=== PATIENT | female | born 1950 | race African-American/Black ===

== ENCOUNTER 2016-11-10 13:21 | Emergency (ER) | payer SELFPAY ==
[~2016-11-10] VITALS: Ht 165.1 cm; Wt 80.0 kg
[~2016-11-10 13:21] MED LIST: GLUCTAB PO; LEVEMIR SQ; LISI-360 PO; LOVA20TA PO; MELO7.5T PO; NOVOLOGP2 SC; SM A81CH CHEW
[2016-11-10 13:22] VITALS: BP 144/80; PULSE 73; RESP 12; TEMP 97.5; O2SAT 97
== END 2016-11-10 14:48 | disposition left against medical advice (07) ==
LOC: NETRI 13:21
DX: Z53.21 Procedure and treatment not carried out due to patient leaving prior to being seen by health care provider (principal)
CPT/HCPCS: 99281

== ENCOUNTER 2016-12-01 10:23 | Inpatient (IN) | payer OTHER, MEDICARE ==
[~2016-12-01] VITALS: Ht 160 cm; Wt 99.5 kg
--- NOTE | 2017-01-09 08:34 | MH ---
cc: Andrew PADILLA M.D. DATE OF ADMISSION: 01/19/2017 ADMITTING DIAGNOSIS: Osteoarthritic degeneration right knee now being admitted for right total knee arthroplasty. HISTORY OF PRESENT ILLNESS: This pleasant 66-year-old diabetic female with a heart condition is being admitted today for a right total knee arthroplasty due to severe osteoarthritic degeneration of the right knee. OTHER PAST HISTORY: 1. She does have some heart problems for which she has been medically cleared. 2. Diabetes. 3. Back pain. CURRENT MEDICATIONS: 1. Metoprolol. 2. Zetia. 3. Metformin. 4. She is off her Plavix. 5. She takes Lipitor. PAST SURGICAL HISTORY: Her previous surgeries include: 1. Hysterectomy. 2. Tonsillectomy. 3. Removal of the stent in her heart. REVIEW OF SYSTEMS: Noncontributory. FAMILY HISTORY: Noncontributory. SOCIAL HISTORY: She does not smoke or drink. ALLERGIES: SHE HAS NO KNOWN ALLERGIES. PHYSICAL EXAMINATION: GENERAL: We find a 66-year-old female well-developed, well-nourished and alert and oriented times three complaining of pain in her right knee. VITAL SIGNS: Blood pressure 132/84, pulse 72 and regular, respirations 18, temperature 98.1. Pulse oximetry 97% on room air. HEAD, EYES, EARS, NOSE, THROAT: Pupils equal, round and reactive to light and accommodation. Extraocular muscles intact. Ears, nose and mouth clear. NECK: The neck is supple. LUNGS: The lungs are clear. HEART: Regular rate. ABDOMEN: Abdomen soft. Positive bowel sounds. Nontender. EXTREMITIES: Extremities reveal the right knee to be tender with crepitus on range of motion with a general valgus deformity noted. Neurovascularly intact to her toes. IMPRESSION: Severe painful osteoarthritic degeneration right knee with genu valgus deformity for which the patient is now scheduled for a right total knee arthroplasty. She understands the procedure well and the risks involved and understands to use Hibiclens scrub and Bactroban preoperatively and was given a prescription for postoperative pain anticoagulation control in the office as she plans on going home with home health care after her stay in the hospital. J. MD MARCELINO Figueroa/GUICHO /3:33 PM /8:28 AM
[2017-01-16] MEDS ORDERED: LEVEMIR SQ (14:26)
[2017-01-16] MEDS ORDERED: LISI10TA3 PO (14:26)
[2017-01-16] MEDS ORDERED: METO25TA3 PO (14:26)
[2017-01-16] MEDS ORDERED: GABA300C5 PO (14:26)
[2017-01-16] MEDS ORDERED: ZETI10TA5 PO (14:26)
[2017-01-16] MEDS ORDERED: ATOR1TAB18 PO (14:26)
[2017-01-16] MEDS ORDERED: NOVOLOGP2 SQ (14:26)
[2017-01-16] MEDS ORDERED: ASPI1TAB69 PO (14:26)
[2017-01-16] MEDS ORDERED: METF500T PO (14:26)
[2017-01-19] MEDS ORDERED: PLAV75TA29 PO (06:31)
[2017-01-19 06:32] VITALS: BP 177/81; PULSE 57; RESP 20; TEMP 98.2; O2SAT 97
[2017-01-19] MEDS ORDERED: SODIUM CHLOR 0.9% 250 ML INJ 250 ML ONE (06:37)
[2017-01-19] MEDS ORDERED: VANCOMYCIN HCL 1000 MG VIAL ONE (06:37)
[2017-01-19] MEDS ORDERED: LACTATED RINGER'S 1000 ML INJ 1,000 ML ONE (06:37)
[2017-01-19] MEDS ORDERED: SODIUM CHLORID 0.9% 500 ML IV PRN (06:45)
[2017-01-19] MEDS ORDERED: LACTATED RINGER'S 1000 ML IV PRN (06:45)
[2017-01-19] MEDS ORDERED: INSULIN HUMAN REGULAR 1,000 UNITS/10 ML VIAL SQ PRN (06:45)
[2017-01-19] MEDS ORDERED: POVIDONE IODINE 5% (ANTISEPSIS KIT) 4 APPLICATIONS EACH NARE PRN (06:45)
[2017-01-19] MEDS ORDERED: CHLORHEXIDINE GLUCONATE 2 % 1 PACK (2 CLOTHS) TOPICAL PRN (06:45)
[2017-01-19] MEDS ORDERED: METOPROLOL TARTRATE 25 MG TAB PO PRN (06:45)
[2017-01-19] MEDS ORDERED: VANCOMYCIN 1000 MG/NS 250 ML (for <70 kg) IV SCH ×2 (07:00)
[2017-01-19] MEDS ORDERED: ceFAZolin 2 GM PREMIX 50 ML IV SCH (07:00)
[2017-01-19] MEDS ORDERED: TRANEXAMIC ACID INJ 857 MG in SODIUM CHLORIDE 0.9% INJ 100 ML IV SCH ×2 (07:00→09:00)
[2017-01-19] MEDS ORDERED: BUPIVACAINE LIPOSO PF 1.3% INJ 20 ML, BUPIVACAINE PF 0.25% INJ 20 ML in SODIUM CHLORIDE... P-ARTICULR SCH (07:15)
[2017-01-19] MEDS ORDERED: ACETAMINOPHEN 1000 MG/100 ML VIAL IV ONE (07:23)
--- NOTE | 2017-01-19 08:20 | HHI.FF ---
Face to Face Verification Diagnosis: (1) Status post total right knee replacement Physical Therapy Gait training Knee: Total knee, Protocol: Right, Full weight bearing Canvas Knee Splint: When in bed & 2 pillows btw thighs Nursing RN: 3 days/week x 2 weeks Nursing: Lauren teaching, Dressing changes Dressing Changes: Daily dressing change, 4x4s, Gauze, Paper tape I have seen patient Shweta Fernandez on 01/19/17. My clinical findings support the need for the requested home health care services because: Limited ability to care for self High risk of falls I certify that my clinical findings support that this patient is homebound because: Unsteady gait/balance Andrew Ashby MD Jan 19, 2017 08:20
[2017-01-19] MEDS ORDERED: WALKER WHEELS/F1 MIS (08:24)
[2017-01-19] MEDS ORDERED: CPMMACHINE (08:25)
[2017-01-19] MEDS ORDERED: MISC-163 (08:25)
[2017-01-19] MEDS ORDERED: SODIUM CHLORIDE 0.9% FLUSH 5 ML FLUSH IVF PRN (08:30)
[2017-01-19] MEDS ORDERED: TRANEXAMIC ACID INJ 0 MG in SODIUM CHLORIDE 0.9% INJ 100 ML IV SCH (08:30)
[2017-01-19] MEDS ORDERED: ACETAMINOPHEN 325 MG TAB PO PRN (08:30)
[2017-01-19] MEDS ORDERED: MORPHINE SULFATE 30 MG/30 ML PCA IV SCH (08:30)
[2017-01-19] MEDS ORDERED: ONDANSETRON HCL 4 MG/2 ML VIAL IVP PRN (08:30)
[2017-01-19] MEDS ORDERED: NALOXONE HCL 0.4 MG/ML AMP IV PRN ×2 (08:30)
[2017-01-19] MEDS ORDERED: diphenhydrAMINE HCL 50 MG/ML VIAL IV PRN (08:30)
[2017-01-19] MEDS ORDERED: TEMAZEPAM 15 MG CAP PO PRN (08:30)
[2017-01-19] MEDS ORDERED: ceFAZolin INJ 1,000 MG VIAL XX ONE (08:57)
[2017-01-19] MEDS: metFORMIN HCL 500 MG TAB PO SCH ×2 (09:00→18:41)
[2017-01-19] MEDS: SODIUM CHLORIDE 0.9% FLUSH 5 ML FLUSH IVF SCH ×2 (09:00→21:00)
[2017-01-19] MEDS ORDERED: BUPIVACAINE HCL PF 0.5% 30 ML VIAL NERV BLOCK ONE (09:39)
[2017-01-19] MEDS: LACTATED RINGER'S 1000 ML INJ 1,000 ML IV SCH ×2 (11:50→21:03)
[2017-01-19] MEDS ORDERED: Post-op Orders (for Pharmacy) MISC XX ONE (11:52)
[2017-01-19] MEDS ORDERED: NEOSTIGMINE 3 MG/3 ML SYR IV ONE (12:00)
[2017-01-19] MEDS ORDERED: ONDANSETRON HCL 4 MG/2 ML VIAL IV PUSH ONE (12:00)
[2017-01-19] MEDS ORDERED: PROPOFOL 200 MG/20 ML AMP IV ONE (12:00)
[2017-01-19] MEDS ORDERED: ePHEDrine/NS 25 MG/5 ML SYR IV ONE (12:00)
[2017-01-19] MEDS ORDERED: LACTATED RINGER'S 1000 ML INJ 1,000 ML IV ONE (12:00)
--- NOTE | 2017-01-19 13:14 | RADRPT ---
EXAM DATE/TIME: 01/19/2017 12:19 [place] COMPARISON: No previous studies available for comparison. INDICATIONS : Post op right knee. MEDICAL HISTORY : None. SURGICAL HISTORY : None. ENCOUNTER: Initial ACUITY: 1 day PAIN SCORE: Non-responsive. LOCATION: Right knee FINDINGS: AP and lateral views of the right knee were obtained and demonstrate that the patient is status post arthroplasty. The femoral and tibial components are intact and in normal alignment. There are postope rative changes involving the patella. There is anterior soft tissue swelling and gas. CONCLUSION: Expected postoperative changes status post arthroplasty. Jatin Priest MD on January 19, 2017 at 12:55 Board Certified Radiologist. This report was verified electronically.
[2017-01-19] MEDS ORDERED: DO NOT ADM ANY ANTICOAGULANT DRUGS PRN (13:30)
--- NOTE | 2017-01-19 13:59 | PD.CONS ---
HPI Service [facility] Consult Requested By Dr. Ashby Reason for Consult DM2, HTN, Hyperlipidemia, CAD - status post Right Total Knee Primary Care Physician Tim Moya MD Diagnoses: (1) History of heart artery stent (2) Dyslipidemia (3) Hypertension (4) Diabetes History of Present Illness Mrs. Fernandez is a 66 year old female. A consult for medical management has been placed for her and I am seeing her post op after she has had a right total knee arthroplasty. She is doing well post op and is having no nausea or severe pain. Baseline conditions are CAD, Hyperlipidemia, DM2, and HTN. She has no acute complaints when seen. Review of Systems Constitutional: DENIES: Diaphoretic episodes, Fever Eyes: DENIES: Blurred vision, Diplopia Respiratory: DENIES: Shortness of breath Cardiovascular: DENIES: Chest pain Gastrointestinal: DENIES: Abdominal pain Musculoskeletal: COMPLAINS OF: Joint pain Hematologic/lymphatic: DENIES: Bruising Immunologic/allergic: DENIES: Eczema Psychiatric: DENIES: Anxiety Past Family Social History Allergies: Coded Allergies: No Known Allergies (Verified , 01/19/17) Past Medical History CAD HTN Hyperlipidemia DM2 OA Past Surgical History Right Total Knee Arthroplasty Reported Medications Reported Meds & Active Scripts Active Reported Plavix (Clopidogrel Bisulfate) 75 Mg Tab 75 Mg PO DAILY Metoprolol Tartrate 25 Mg Tab 25 Mg PO BID Atorvastatin (Atorvastatin Calcium) 80 Mg Tab 80 Mg PO HS Zetia (Ezetimibe) 10 Mg Tab 10 Mg PO DAILY Gabapentin 300 Mg Cap 300 Mg PO BID Metformin (Metformin HCl) 500 Mg Tab 500 Mg PO BIDPC With meals Lisinopril 10 Mg Tab 10 Mg PO DAILY Levemir Inj (Insulin Detemir) 1,000 unit/ 10 ML Vial 25 Units SQ HS Do not mix with any other Insulin. Novolog Inj (Insulin Aspart) 1,000 Unit/10 Ml Vial 1-9 Units SQ TID Max dose at bedtime:( )units; sugars less than 70,(0)units; sugars 150-199,(1) unit; sugars 200-249,(3) units; sugars 250-299,(5) units; sugars 300-349,(7) units; sugars greater than 349,(9) units Aspirin 81 Mg Tabdr 81 Mg PO DAILY Active Ordered Medications Administered Medications Medications (Trade) Dose Ordered Sig/Taz Route PRN Reason Start Time Stop Time Status Last Admin Dose Admin Tranexamic Acid 857 mg/Sodium Chloride 108.57 ml @ 200 mls/ hr ONCE IV 01/19/17 07:00 01/20/17 06:59 01/19/17 08:25 Tranexamic Acid 857 mg/Sodium Chloride 108.57 ml @ 200 mls/ hr ONCE IV 01/19/17 09:00 01/20/17 08:59 01/19/17 11:55 Lactated Ringer's (Lr 1000 ml Inj) 1,000 ml @ 80 mls/hr [id number] IV 01/19/17 08:16 01/19/17 11:50 Morphine Sulfate (Morphine 1 Mg/ ml EXEC[employer]IVE CREATIVE DIRECTOR) 30 mg UNSCH IV 01/19/17 08:30 01/19/17 12:31 Family History None reported. sedation post op prevents a clear history Social History None reported. sedation post op prevents a clear history Physical Exam Vital Signs Vital Signs Date Time Temp Pulse Resp B/P Pulse Ox O2 Delivery O2 Flow Rate FiO2 01/19/17 13:30 65 16 152/77 95 Nasal Cannula 2 01/19/17 13:15 72 16 158/80 96 Nasal Cannula 2 01/19/17 13:00 72 16 150/73 96 Nasal Cannula 2 01/19/17 12:45 72 16 151/77 96 Nasal Cannula 2 01/19/17 12:31 14 01/19/17 12:30 74 16 148/83 97 Nasal Cannula 2 01/19/17 12:15 74 16 135/69 97 Nasal Cannula 2 01/19/17 12:00 73 16 146/76 97 Nasal Cannula 2 01/19/17 11:48 98.4 76 16 138/62 98 Nasal Cannula 4 01/19/17 06:32 98.2 57 20 177/81 97 Physical Exam GENERAL: NAD, A&Ox3 SKIN: Warm and dry. HEAD: Normocephalic. EYES: No scleral icterus. No injection or drainage. NECK: Supple, trachea midline. No JVD or lymphadenopathy. CARDIOVASCULAR: Regular rate and rhythm without murmurs, gallops, or rubs. RESPIRATORY: Breath sounds equal bilaterally. No accessory muscle use. GASTROINTESTINAL: Abdomen soft, non-tender, nondistended. MUSCULOSKELETAL: No cyanosis, or edema. Right Knee is in a mobilizer and bandaged. BACK: Nontender without obvious deformity. No CVA tenderness. Laboratory Laboratory Tests Test 01/19/17 06:30 Blood Type O POSITIVE Antibody Screen NEGATIVE Blood Bank Comment Imaging Last Impressions Knee X-Ray 01/19/17 0816 Signed Impressions: Service Date/Time: Thursday, January 19, 2017 12:19 - CONCLUSION: Expected postoperative changes status post arthroplasty. Jatin Priest MD Assessment and Plan Problem List: (1) Dyslipidemia ICD Code: E78.5 Status: Chronic Plan: Resume statins post op Follow as an outpatient (2) Hypertension ICD Code: I10 Status: Chronic Plan: Follow BP Mild elevation currently Resume home treatments Follow BP Adjust if needed, for control PRN Enalapril IV (3) Diabetes ICD Code: E11.9 Status: Chronic Plan: SSI Diabetic Diet Follow blood sugars (4) Status post total right knee replacement ICD Code: Z96.651 Status: Acute Plan: PRN Pain treatment Bedrest immediately post op till less sedated PT planned Ortho following (5) History of heart artery stent ICD Code: Z95.5 Status: Chronic Plan: No chest symptoms Follow for any chest pain Deepak Espinal MD Jan 19, 2017 13:59
--- NOTE | 2017-01-19 14:24 | EKG ---
Date Performed: 01/19/2017 Time Performed: 06:48:20 PTAGE: 66 years EKG: SINUS BRADYCARDIA MINIMAL VOLTAGE CRITERIA FOR LVH, CONSIDER NORMAL VARIANT BORDERLINE ECG Compared to prior tracing no significant change PREVIOUS TRACING : 04/16/2009 12.49 DOCTOR: Tan Pedroza Interpretating Date/Time 01/19/2017 14:22:05
[2017-01-19] MEDS ORDERED: ENALAPRILAT 1.25 MG/ML VIAL IV PUSH PRN (15:00)
[2017-01-19] MEDS ORDERED: MIDAZOLAM HCL 2 MG/2 ML VIAL ONE (16:17)
[2017-01-19] MEDS ORDERED: fentaNYL CITRATE 250 MCG/5 ML AMP ONE (16:18)
[2017-01-19 16:45] VITALS: BP 135/63; PULSE 68; RESP 17; TEMP 95.6; O2SAT 100
[2017-01-19] MEDS ORDERED: INSULIN ASPART 1,000 UNITS/10 ML VIAL SQ ONE (19:30)
[2017-01-19] MEDS ORDERED: DEXTROSE 50% IN WATER 50 ML VIAL(D50) IV PUSH PRN (19:30)
[2017-01-19] MEDS ORDERED: GLUCAGON 1 MG/ML VIAL OTHER PRN (19:30)
[2017-01-19 20:03] VITALS: O2SAT 97
[2017-01-19] MEDS: INSULIN ASPART SUPPLEMENTAL SCALE SQ SCH (21:00)
[2017-01-19] MEDS: MAGNESIUM HYDROXIDE SUSP 30 ML CUP PO SCH (21:02)
[2017-01-19] MEDS: SENNOSIDES 8.6 MG TAB PO SCH (21:03)
[2017-01-19] MEDS: GABAPENTIN 300 MG CAP PO SCH (21:03)
[2017-01-19] MEDS: ATORVASTATIN 80 MG TAB PO SCH (21:03)
[2017-01-19] MEDS: PCA - TOTAL MG MORPHINE DELIVERED PER SHIFT SCH (21:04)
[2017-01-19] MEDS: INSULIN DETEMIR 100 UNITS/ML VIAL SQ SCH (21:05)
[2017-01-19] MEDS: METOPROLOL TARTRATE 25 MG TAB PO SCH (21:05)
[2017-01-20] VITALS (8 sets, daily range): BP systolic 127–157; BP diastolic 60–71; PULSE 76–107; RESP 16–19; TEMP 97.8–99.9; O2SAT 95–100
[2017-01-20] MEDS: CHLORHEXIDINE GLUCONATE 4% SOLN 120 ML BTL TOPICAL SCH (03:13)
[2017-01-20] MEDS: PCA - TOTAL MG MORPHINE DELIVERED PER SHIFT SCH ×3 (06:00→21:48)
[2017-01-20] MEDS: INSULIN ASPART SUPPLEMENTAL SCALE SQ SCH ×4 (06:33→21:48)
[2017-01-20 07:03] LABS: HEMATOCRIT 30.6 % (35.0-46.0); REVIEW FLAG FINAL
[2017-01-20] MEDS: ASPIRIN EC 81 MG TABEC PO SCH (08:48)
[2017-01-20] MEDS: GABAPENTIN 300 MG CAP PO SCH ×2 (08:48→21:46)
[2017-01-20] MEDS: SENNOSIDES 8.6 MG TAB PO SCH ×2 (08:48→21:47)
[2017-01-20] MEDS: METOPROLOL TARTRATE 25 MG TAB PO SCH ×2 (08:48→21:47)
[2017-01-20] MEDS: LISINOPRIL 10 MG TAB PO SCH (08:48)
[2017-01-20] MEDS: LACTATED RINGER'S 1000 ML INJ 1,000 ML IV SCH ×2 (08:48→21:46)
[2017-01-20] MEDS: metFORMIN HCL 500 MG TAB PO SCH ×2 (08:48→16:52)
[2017-01-20] MEDS: MAGNESIUM HYDROXIDE SUSP 30 ML CUP PO SCH ×2 (08:48→21:46)
[2017-01-20] MEDS: EZETIMIBE 10 MG TAB PO SCH (08:48)
[2017-01-20] MEDS: SODIUM CHLORIDE 0.9% FLUSH 5 ML FLUSH IVF SCH ×2 (08:51→21:00)
--- NOTE | 2017-01-20 09:17 | HHI.PR ---
Subjective Remarks very motivated with physical therapy voided spontaneously this am minimal pain Objective Vitals Vital Signs Date Time Temp Pulse Resp B/P Pulse Ox O2 Delivery O2 Flow Rate FiO2 01/20/17 08:15 95 Nasal Cannula 2.00 01/20/17 08:00 99.3 83 19 127/60 96 01/20/17 06:00 16 01/20/17 04:00 97.8 78 17 152/70 100 01/20/17 00:00 98.2 107 16 132/69 100 01/19/17 21:04 18 01/19/17 20:03 97 Nasal Cannula 2.00 01/19/17 16:45 95.6 68 17 135/63 100 01/19/17 16:30 68 16 143/72 97 Nasal Cannula 2 01/19/17 15:30 67 16 142/83 97 Nasal Cannula 2 01/19/17 14:30 77 16 152/75 95 Nasal Cannula 2 01/19/17 13:30 65 16 152/77 95 Nasal Cannula 2 01/19/17 13:15 72 16 158/80 96 Nasal Cannula 2 01/19/17 13:00 72 16 150/73 96 Nasal Cannula 2 01/19/17 12:45 72 16 151/77 96 Nasal Cannula 2 01/19/17 12:31 14 01/19/17 12:30 74 16 148/83 97 Nasal Cannula 2 01/19/17 12:15 74 16 135/69 97 Nasal Cannula 2 01/19/17 12:00 73 16 146/76 97 Nasal Cannula 2 01/19/17 11:48 98.4 76 16 138/62 98 Nasal Cannula 4 I/O 01/19/17 01/19/17 01/19/17 01/20/17 01/20/17 01/20/17 07:00 15:00 23:00 07:00 15:00 23:00 Intake Total 1000 ml 780 ml 100 ml Output Total 150 ml 0 ml Balance 850 ml 780 ml 100 ml Intake Oral 580 ml 100 ml IV Total 200 ml Other 1000 ml Output Urine Total 0 ml 0 ml Estimated Blood Loss 150 ml # Voids 1 2 # Bowel Movements 0 0 Result Diagram: 01/20/17 0525 Imaging Last Impressions Knee X-Ray 01/19/1716 Signed Impressions: Service Date/Time: Thursday, January 19, 2017 12:19 - CONCLUSION: Expected postoperative changes status post arthroplasty. Jatin Priest MD Objective Remarks awake and alert, oriented x 3 lungs clear regular rhythm abdomen soft right knee- post op dressing in place no calf swelling or tenderness Procedures 01/19- right total knee replacement A/P Problem List: (1) Dyslipidemia ICD Code: E78.5 Status: Chronic (2) Hypertension ICD Code: I10 Status: Chronic (3) Diabetes ICD Code: E11.9 Status: Chronic (4) Status post total right knee replacement ICD Code: Z96.651 Status: Acute (5) History of heart artery stent ICD Code: Z95.5 Status: Chronic Assessment and Plan Dyslipidemia ICD Code: E78.5 Status: Chronic Plan: on statins Hypertension ICD Code: I10 Status: Chronic Plan: Follow BP Mild elevation currently Resume home treatments Follow BP Adjust if needed, for control PRN Enalapril IV Diabetes Mellitus, insulin requiring ICD Code: E11.9 Status: Chronic Plan: SSI Diabetic Diet, states good hypoglycemic awareness Follow blood sugars continue on insulin regimen and metformin Status post total right knee replacement 01/19 ICD Code: Z96.651 Status: Acute Plan: PRN Pain treatment PT daily- per patient- plan to go home with home PT Ortho following History of CAD stent ICD Code: Z95.5 Status: Chronic Plan: No chest symptoms Follow for any chest pain DC planning- home with home health PT states equipments set up at home hopefully tomorrow Kathya Stark MD Jan 20, 2017 09:17
[2017-01-20] MEDS: ENOXAPARIN SODIUM 30 MG/0.3 ML SYRINGE SQ SCH ×2 (10:55→23:23)
--- NOTE | 2017-01-20 12:54 | PD.ORT.PN ---
Subjective Subjective Remarks pt comfortable today. No complaints. Objective Vitals Vital Signs Date Time Temp Pulse Resp B/P Pulse Ox O2 Delivery O2 Flow Rate FiO2 01/20/17 08:15 95 Nasal Cannula 2.00 01/20/17 08:00 99.3 83 19 127/60 96 01/20/17 06:00 16 01/20/17 04:00 97.8 78 17 152/70 100 01/20/17 00:00 98.2 107 16 132/69 100 01/19/17 21:04 18 01/19/17 20:03 97 Nasal Cannula 2.00 01/19/17 16:45 95.6 68 17 135/63 100 01/19/17 16:30 68 16 143/72 97 Nasal Cannula 2 01/19/17 15:30 67 16 142/83 97 Nasal Cannula 2 01/19/17 14:30 77 16 152/75 95 Nasal Cannula 2 01/19/17 13:30 65 16 152/77 95 Nasal Cannula 2 01/19/17 13:15 72 16 158/80 96 Nasal Cannula 2 01/19/17 13:00 72 16 150/73 96 Nasal Cannula 2 I/O 01/19/17 01/19/17 01/19/17 01/20/17 01/20/17 01/20/17 07:00 15:00 23:00 07:00 15:00 23:00 Intake Total 1000 ml 780 ml 100 ml Output Total 150 ml 0 ml Balance 850 ml 780 ml 100 ml Intake Oral 580 ml 100 ml IV Total 200 ml Other 1000 ml Output Urine Total 0 ml 0 ml Estimated Blood Loss 150 ml # Voids 1 2 # Bowel Movements 0 0 Result Diagram: 01/20/17 0525 Objective Remarks dressing dry and intact. No calf tenderness. Assessment & Plan Ortho Post Op Day #: 1 Problem List: Assessment and Plan OOB, PT, wound care. Andrew Ashby MD Jan 20, 2017 12:54
[2017-01-20] MEDS: ACETAMINOPHEN/HYDROcodone 325 MG/7.5 MG TAB PO PRN ×2 (16:49→21:47)
--- NOTE | 2017-01-20 18:36 | MP ---
cc: Andrew ASHBY M.D. DATE OF SURGERY: 01/19/2017. PREOPERATIVE DIAGNOSIS: Osteoarthritic degeneration, right knee. POSTOPERATIVE DIAGNOSIS: Osteoarthritic degeneration right knee. OPERATIVE PROCEDURE PERFORMED: Right total knee arthroplasty using Consensus Knee System, size 2 femur, 1 tibia, 10 standard insert and a size 1 patella with two batches of [place] Blue cement. SURGEON Andrew Ashby MD. PRINCIPAL LIBRARIAN: GAGAN Iyer. ANESTHESIA: General intubation. DESCRIPTION OF THE PROCEDURE IN DETAIL: After successful induction of anesthesia, the patient is placed on the operating room table in the supine position. The knee is prepped and draped in the usual manner. A tourniquet is inflated at the upper thigh and set to 300 mmHg pressure after exsanguination of the lower extremity. A longitudinal incision is made extending from 3 inches proximal to the superior pole of the patella, across the patella in longitudinal fashion, and down past the insertion of the tibial tubercle into the proximal tibia. The incision is carried down through subcutaneous tissue along the medial aspect of the patella and retinaculum, down through the capsule to expose the knee joint. The patella and patellar tendon are freed up enough to allow the patella to be inverted and retracted off the lateral side of the knee joint. The knee joint is left exposed. Small osteophytes are removed. All soft tissue is removed to allow proper position of the femoral and tibial cutting jig guide. The first femoral jig is then inserted along the distal end of the femur after first measuring to decide whether this is a small, medium, or large component. The notch is then drilled and the tibial cutting guide inserted into the femoral cutting guide, along with the ankle brace to allow for proper measurement of the tibial cutting surface that needed to be resected. Pins are inserted into the tibial cutting jig and femoral cutting jig to hold them in place. An oscillating saw is then used to resect the surface of the tibia. The surface of the tibia is then completely removed using sharp and blunt dissection. The anterior and posterior cuts of the femur are then made as well using an oscillating saw through the cutting guide. All guides are then removed and the varus/valgus angulation cutting guide applied to the femur for proper measurement of the proper amount of valgus. The anterior cutting guide for the femur is then inserted at the anterior femoral cuts made. Next, the first block trial is inserted into the femur to allow for proper condyle drill holes to be made which are then made followed by removal of the bone between the condyles using an oscillating saw as well as the bone removed at the most posterior surface of the condyle. After this, this guide is removed and the chamfer cuts made using the chamfer cutting guide from both anterior and posterior. Next, the femoral trial is then inserted, the tibial surface reflected anterior to expose the tibial surface and a tibial stem guide is inserted after first measuring for a standard, standard plus, large, or large plus surface to be used. After the stem is impacted the trial tibial surface is applied followed by the trial meniscal components. After full range of motion is found with the appropriate length meniscal components varying the patella is prepared by resecting the posterior aspect of the patella using an oscillating saw, inserting a trial. The trial is then removed and the cruciate cutting guide applied using the bur to cut the cruciate cuts. After cruciate cuts are made all trials are removed. The wound is irrigated copiously with antibiotic solution and Water Pick and the actual components inserted into place utilizing the aforementioned components. After the cement has hardened and the components are found to have full range of motion with no instability. The tourniquet was only used for cementing and the total tourniquet time was 8 minutes at 300 mmHg pressure. The wound again was irrigated copiously with antibiotic solution, meticulous hemostasis achieved. Extra pain control was used using 120 cc of Exparel with saline. No drains were utilized. The deep fascia was approximated with running #2 Quill, subcutaneous tissue approximated using interrupted and running 2-0 Monocryl sutures and Steri-Strips. Sterile dressing and knee immobilizer applied. No drain utilized. The estimated blood loss was 150 cc. Sponge and suture counts were correct. The patient tolerated the procedure well and left the operating room in satisfactory condition. JMD MARCELINO García/GUICHO /11:10 AM /6:24 PM
[2017-01-20] MEDS: ATORVASTATIN 80 MG TAB PO SCH (21:46)
[2017-01-20] MEDS: DOCUSATE SODIUM 100 MG CAP PO SCH (21:47)
[2017-01-20] MEDS: MULTIVITAMINS/MINERALS THERAPEUTIC TAB PO SCH (21:47)
[2017-01-20] MEDS: INSULIN DETEMIR 100 UNITS/ML VIAL SQ SCH (21:48)
[2017-01-21 00:55] VITALS: BP 128/51; PULSE 94; RESP 18; TEMP 100.7; O2SAT 92
[2017-01-21] MEDS: PCA - TOTAL MG MORPHINE DELIVERED PER SHIFT SCH ×3 (04:05→22:00)
[2017-01-21] MEDS: INSULIN ASPART SUPPLEMENTAL SCALE SQ SCH ×4 (06:38→20:18)
[2017-01-21] MEDS: ACETAMINOPHEN/HYDROcodone 325 MG/7.5 MG TAB PO PRN ×4 (06:38→20:09)
[2017-01-21 06:52] LABS: HEMATOCRIT 27.3 % (35.0-46.0); REVIEW FLAG FINAL
[2017-01-21] MEDS: CHLORHEXIDINE GLUCONATE 4% SOLN 120 ML BTL TOPICAL SCH (07:21)
--- NOTE | 2017-01-21 08:09 | PD.ORT.PN ---
Subjective Subjective Remarks pt comfortable today. No complaints. Objective Vitals Vital Signs Date Time Temp Pulse Resp B/P Pulse Ox O2 Delivery O2 Flow Rate FiO2 01/21/17 00:55 100.7 94 18 128/51 92 01/20/17 19:15 99.9 76 18 140/69 96 01/20/17 18:14 96 Nasal Cannula 2.00 01/20/17 16:00 99.5 91 18 157/71 96 01/20/17 12:00 99.0 84 19 132/69 96 01/20/17 08:15 95 Nasal Cannula 2.00 I/O 01/20/17 01/20/17 01/20/17 01/21/17 01/21/17 01/21/17 07:00 15:00 23:00 07:00 15:00 23:00 Intake Total 100 ml 240 ml 120 ml Balance 100 ml 240 ml 120 ml Intake Oral 100 ml 240 ml 120 ml # Voids 2 1 1 # Bowel Movements 0 0 0 Result Diagram: 01/21/17 0615 Objective Remarks dressing dry and intact. No calf tenderness. In bed at moment. Assessment & Plan Ortho Post Op Day #: 2 Problem List: Assessment and Plan OOB, PT, wound care. Andrew Ashby MD Jan 21, 2017 08:09
[2017-01-21 08:30] VITALS: BP 143/69; PULSE 105; RESP 20; TEMP 100.4; O2SAT 93
--- NOTE | 2017-01-21 08:50 | HHI.PR ---
Subjective Remarks up in bedside commode- voiding spontaenously- feels like she is going to have a BM this am motivated with PT pain controlled Objective Vitals Vital Signs Date Time Temp Pulse Resp B/P Pulse Ox O2 Delivery O2 Flow Rate FiO2 01/21/17 00:55 100.7 94 18 128/51 92 01/20/17 19:15 99.9 76 18 140/69 96 01/20/17 18:14 96 Nasal Cannula 2.00 01/20/17 16:00 99.5 91 18 157/71 96 01/20/17 12:00 99.0 84 19 132/69 96 I/O 01/20/17 01/20/17 01/20/17 01/21/17 01/21/17 01/21/17 07:00 15:00 23:00 07:00 15:00 23:00 Intake Total 100 ml 240 ml 120 ml Balance 100 ml 240 ml 120 ml Intake Oral 100 ml 240 ml 120 ml # Voids 2 1 1 # Bowel Movements 0 0 0 Result Diagram: 01/21/17 0615 Imaging Last Impressions Knee X-Ray 01/19/17 0816 Signed Impressions: Service Date/Time: Thursday, January 19, 2017 12:19 - CONCLUSION: Expected postoperative changes status post arthroplasty. Jatin Priest MD Objective Remarks awake and alert, oriented x 3 lungs clear, no rales or wheezes regular rhythm abdomen soft right knee- post op dressing in place no calf swelling or tenderness Procedures 01/19- right total knee replacement A/P Problem List: (1) Dyslipidemia ICD Code: E78.5 Status: Chronic (2) Hypertension ICD Code: I10 Status: Chronic (3) Diabetes ICD Code: E11.9 Status: Chronic (4) Status post total right knee replacement ICD Code: Z96.651 Status: Acute (5) History of heart artery stent ICD Code: Z95.5 Status: Chronic Assessment and Plan Dyslipidemia ICD Code: E78.5 Status: Chronic Plan: on statins Hypertension ICD Code: I10 Status: Chronic Plan: Follow BP Mild elevation currently Resume home treatments Follow BP Adjust if needed, for control PRN Enalapril IV Diabetes Mellitus, insulin requiring ICD Code: E11.9 Status: Chronic Plan: SSI + Levemir. 205 BS this am Diabetic Diet, states good hypoglycemic awareness Follow blood sugars continue on insulin regimen d/w her- was on Metformin- she DC this- adverse reactions of diarrhea Status post total right knee replacement 01/19 ICD Code: Z96.651 Status: Acute Plan: PRN Pain treatment PT daily- per patient- plan to go home with home PT Ortho following History of CAD stent ICD Code: Z95.5 Status: Chronic Plan: No chest symptoms Follow for any chest pain DC planning- home with home health PT states equipments set up at home Kathya Anderson MD Jan 21, 2017 08:49
[2017-01-21] MEDS: SODIUM CHLORIDE 0.9% FLUSH 5 ML FLUSH IVF SCH ×2 (09:00→20:07)
[2017-01-21] MEDS: metFORMIN HCL 500 MG TAB PO SCH ×2 (09:00→17:29)
[2017-01-21] MEDS: SENNOSIDES 8.6 MG TAB PO SCH ×2 (09:10→20:08)
[2017-01-21] MEDS: MULTIVITAMINS/MINERALS THERAPEUTIC TAB PO SCH ×2 (09:10→20:08)
[2017-01-21] MEDS: LISINOPRIL 10 MG TAB PO SCH (09:11)
[2017-01-21] MEDS: ASPIRIN EC 81 MG TABEC PO SCH (09:11)
[2017-01-21] MEDS: METOPROLOL TARTRATE 25 MG TAB PO SCH ×2 (09:11→20:08)
[2017-01-21] MEDS: DOCUSATE SODIUM 100 MG CAP PO SCH ×2 (09:11→20:08)
[2017-01-21] MEDS: MAGNESIUM HYDROXIDE SUSP 30 ML CUP PO SCH ×2 (09:11→20:23)
[2017-01-21] MEDS: GABAPENTIN 300 MG CAP PO SCH ×2 (09:11→20:08)
[2017-01-21] MEDS: EZETIMIBE 10 MG TAB PO SCH (09:11)
[2017-01-21] MEDS ORDERED: BACITRACIN OINT 0.9 GM PKT TOP PRN (10:15)
[2017-01-21] MEDS: LACTATED RINGER'S 1000 ML INJ 1,000 ML IV SCH ×2 (10:16→22:46)
[2017-01-21] MEDS: ENOXAPARIN SODIUM 30 MG/0.3 ML SYRINGE SQ SCH ×2 (10:57→23:09)
[2017-01-21 12:40] VITALS: BP 148/70; PULSE 93; RESP 20; TEMP 98.3; O2SAT 98
[2017-01-21 15:44] VITALS: BP 128/57; PULSE 90; RESP 20; TEMP 99.3; O2SAT 95
[2017-01-21 19:45] VITALS: BP 146/71; PULSE 106; RESP 19; TEMP 99; O2SAT 97
[2017-01-21] MEDS: ATORVASTATIN 80 MG TAB PO SCH (20:08)
[2017-01-21] MEDS: INSULIN DETEMIR 100 UNITS/ML VIAL SQ SCH (20:09)
[2017-01-22 00:04] VITALS: BP 144/63; PULSE 97; RESP 18; TEMP 99.2; O2SAT 95
[2017-01-22 00:58] VITALS: BP 144/63; PULSE 97; RESP 18; TEMP 99.2; O2SAT 95
[2017-01-22 04:02] VITALS: BP 152/65; PULSE 109; RESP 18; TEMP 100; O2SAT 95
[2017-01-22] MEDS: PCA - TOTAL MG MORPHINE DELIVERED PER SHIFT SCH ×2 (05:07→11:56)
[2017-01-22] MEDS: INSULIN ASPART SUPPLEMENTAL SCALE SQ SCH ×4 (05:33→19:48)
[2017-01-22 08:00] VITALS: BP 172/77; PULSE 106; RESP 20; TEMP 100.1; O2SAT 95
[2017-01-22] MEDS: SODIUM CHLORIDE 0.9% FLUSH 5 ML FLUSH IVF SCH ×2 (08:39→19:55)
[2017-01-22] MEDS: EZETIMIBE 10 MG TAB PO SCH (08:39)
[2017-01-22] MEDS: GABAPENTIN 300 MG CAP PO SCH ×2 (08:39→19:48)
[2017-01-22] MEDS: metFORMIN HCL 500 MG TAB PO SCH ×2 (08:39→15:56)
[2017-01-22] MEDS: MULTIVITAMINS/MINERALS THERAPEUTIC TAB PO SCH ×2 (08:39→19:48)
[2017-01-22] MEDS: ASPIRIN EC 81 MG TABEC PO SCH (08:39)
[2017-01-22] MEDS: LISINOPRIL 10 MG TAB PO SCH (08:39)
[2017-01-22] MEDS: MAGNESIUM HYDROXIDE SUSP 30 ML CUP PO SCH ×2 (08:39→19:49)
[2017-01-22] MEDS: SENNOSIDES 8.6 MG TAB PO SCH ×2 (08:39→19:48)
[2017-01-22] MEDS: METOPROLOL TARTRATE 25 MG TAB PO SCH ×2 (08:39→19:48)
[2017-01-22] MEDS: DOCUSATE SODIUM 100 MG CAP PO SCH ×2 (08:39→19:48)
[2017-01-22] MEDS: ACETAMINOPHEN/HYDROcodone 325 MG/7.5 MG TAB PO PRN ×3 (09:10→23:04)
--- NOTE | 2017-01-22 10:25 | PD.ORT.PN ---
Subjective Subjective Remarks pt comfortable today. No complaints. Objective Vitals Vital Signs Date Time Temp Pulse Resp B/P Pulse Ox O2 Delivery O2 Flow Rate FiO2 01/22/17 08:00 100.1 106 20 172/77 95 01/22/17 04:02 100.0 109 18 152/65 95 01/22/17 00:58 99.2 97 18 144/63 95 01/21/17 19:45 99.0 106 19 146/71 97 01/21/17 15:44 99.3 90 20 128/57 95 01/21/17 12:40 98.3 93 20 148/70 98 I/O 01/21/17 01/21/17 01/21/17 01/22/17 01/22/17 01/22/17 07:00 15:00 23:00 07:00 15:00 23:00 Intake Total 120 ml 240 ml 360 ml 240 ml Balance 120 ml 240 ml 360 ml 240 ml Intake Oral 120 ml 240 ml 360 ml 240 ml # Voids 1 4 2 1 # Bowel Movements 0 0 0 0 Result Diagram: 01/21/17 0615 Objective Remarks dressing dry and intact. No calf tenderness. Sitting up in chair. Assessment & Plan Ortho Post Op Day #: 3 Problem List: Assessment and Plan OOB, PT, wound care.Watch temp. Possible dc tomorrow if afebrile. Andrew Ashby MD Jan 22, 2017 10:25
[2017-01-22] MEDS: LACTATED RINGER'S 1000 ML INJ 1,000 ML IV SCH (11:16)
[2017-01-22] MEDS: ENOXAPARIN SODIUM 30 MG/0.3 ML SYRINGE SQ SCH ×2 (11:45→23:04)
[2017-01-22 12:00] VITALS: BP 142/64; PULSE 93; RESP 19; TEMP 96.2; O2SAT 94
[2017-01-22] MEDS ORDERED: ACETAMINOPHEN 325 MG TAB PO ONE (13:15)
--- NOTE | 2017-01-22 15:18 | HHI.PR ---
Subjective Remarks no chills no pain complains or chest pains or shortness of breath up and did more with PT states finally had a BM today Objective Vitals Vital Signs Date Time Temp Pulse Resp B/P Pulse Ox O2 Delivery O2 Flow Rate FiO2 01/22/17 08:00 100.1 106 20 172/77 95 01/22/17 04:02 100.0 109 18 152/65 95 01/22/17 00:58 99.2 97 18 144/63 95 01/21/17 19:45 99.0 106 19 146/71 97 01/21/17 15:44 99.3 90 20 128/57 95 I/O 01/21/17 01/21/17 01/21/17 01/22/17 01/22/17 01/22/17 07:00 15:00 23:00 07:00 15:00 23:00 Intake Total 120 ml 240 ml 360 ml 240 ml Balance 120 ml 240 ml 360 ml 240 ml Intake Oral 120 ml 240 ml 360 ml 240 ml # Voids 1 4 2 1 # Bowel Movements 0 0 0 0 Result Diagram: 01/21/17 0615 Imaging Last Impressions Knee X-Ray 01/19/17 0816 Signed Impressions: Service Date/Time: Thursday, January 19, 2017 12:19 - CONCLUSION: Expected postoperative changes status post arthroplasty. Jatin Priest MD Objective Remarks awake and alert, oriented x 3 lungs clear, no rales or wheezes regular rhythm abdomen soft right knee- post op dressing in place no calf swelling or tenderness Procedures 01/19- right total knee replacement A/P Problem List: (1) Dyslipidemia ICD Code: E78.5 Status: Chronic (2) Hypertension ICD Code: I10 Status: Chronic (3) Diabetes ICD Code: E11.9 Status: Chronic (4) Status post total right knee replacement ICD Code: Z96.651 Status: Acute (5) History of heart artery stent ICD Code: Z95.5 Status: Chronic Assessment and Plan Status post total right knee replacement 01/19 ICD Code: Z96.651 Status: Acute Plan: PRN Pain treatment PT daily- per patient- plan to go home with home PT Ortho following Dyslipidemia ICD Code: E78.5 Status: Chronic Plan: on statins Hypertension ICD Code: I10 Status: Chronic Plan: Follow BP Mild elevation currently Resume home treatments Follow BP Adjust if needed, for control PRN Enalapril IV Diabetes Mellitus, insulin requiring ICD Code: E11.9 Status: Chronic Plan: SSI + Levemir. continue current regimen Diabetic Diet, states good hypoglycemic awareness Follow blood sugars continue on insulin regimen d/w her- was on Metformin- she DC this- adverse reactions of diarrhea History of CAD stent some elevated readings ICD Code: Z95.5 Status: Chronic Plan: No chest symptoms continue on MARIE Low grade fever/tachycardia- likely post op atelectasis HR much improved- 90/min T down ebncourage IS efforts DC planning- home with home health PT states equipments set up at home CM ff Kathya Stark MD Jan 22, 2017 15:18
[2017-01-22 16:00] VITALS: BP 143/67; PULSE 90; RESP 18; TEMP 98.3; O2SAT 98
[2017-01-22] MEDS: ATORVASTATIN 80 MG TAB PO SCH (19:48)
[2017-01-22] MEDS: INSULIN DETEMIR 100 UNITS/ML VIAL SQ SCH (19:48)
[2017-01-23] VITALS: BP 113/56; PULSE 86; RESP 16; TEMP 98.7; O2SAT 95
[2017-01-23 04:00] VITALS: BP 119/67; PULSE 90; RESP 17; TEMP 97.2; O2SAT 99
[2017-01-23] MEDS: ACETAMINOPHEN/HYDROcodone 325 MG/7.5 MG TAB PO PRN ×3 (06:00→14:47)
[2017-01-23] MEDS: PCA - TOTAL MG MORPHINE DELIVERED PER SHIFT SCH ×2 (06:00→12:55)
[2017-01-23] MEDS: INSULIN ASPART SUPPLEMENTAL SCALE SQ SCH ×2 (06:08→10:18)
[2017-01-23 07:36] VITALS: BP 136/64; PULSE 89; RESP 17; TEMP 97.6; O2SAT 98
[2017-01-23] MEDS: metFORMIN HCL 500 MG TAB PO SCH (08:35)
[2017-01-23] MEDS: LISINOPRIL 10 MG TAB PO SCH (08:35)
[2017-01-23] MEDS: METOPROLOL TARTRATE 25 MG TAB PO SCH (08:35)
[2017-01-23] MEDS: ASPIRIN EC 81 MG TABEC PO SCH (08:35)
[2017-01-23] MEDS: DOCUSATE SODIUM 100 MG CAP PO SCH (08:35)
[2017-01-23] MEDS: MAGNESIUM HYDROXIDE SUSP 30 ML CUP PO SCH (08:35)
[2017-01-23] MEDS: MULTIVITAMINS/MINERALS THERAPEUTIC TAB PO SCH (08:35)
[2017-01-23] MEDS: GABAPENTIN 300 MG CAP PO SCH (08:35)
[2017-01-23] MEDS: SENNOSIDES 8.6 MG TAB PO SCH (08:35)
[2017-01-23] MEDS: SODIUM CHLORIDE 0.9% FLUSH 5 ML FLUSH IVF SCH (08:35)
[2017-01-23] MEDS: EZETIMIBE 10 MG TAB PO SCH (08:35)
--- NOTE | 2017-01-23 09:09 | PD.ORT.PN ---
Subjective Subjective Remarks pt comfortable today. No complaints.Ready to go home. Objective Vitals Vital Signs Date Time Temp Pulse Resp B/P Pulse Ox O2 Delivery O2 Flow Rate FiO2 01/23/17 07:36 97.6 89 17 136/64 98 01/23/17 04:00 97.2 90 17 119/67 99 01/23/17 00:00 98.7 86 16 113/56 95 01/22/17 16:00 98.3 90 18 143/67 98 01/22/17 12:00 96.2 93 19 142/64 94 I/O 01/22/17 01/22/17 01/22/17 01/23/17 01/23/17 01/23/17 07:00 15:00 23:00 07:00 15:00 23:00 Intake Total 240 ml 700 ml 480 ml 240 ml Balance 240 ml 700 ml 480 ml 240 ml Intake Oral 240 ml 700 ml 480 ml 240 ml # Voids 1 3 1 1 # Bowel Movements 0 2 Result Diagram: 01/21/17 0615 Objective Remarks dressing dry and intact. No calf tenderness. Sitting up in chair. Assessment & Plan Ortho Post Op Day #: 4 Problem List: Assessment and Plan OOB, PT, wound long-term today with [facility]. Andrew Ashby MD Jan 23, 2017 09:09
--- NOTE | 2017-01-23 09:13 | HHI.DS ---
Discharge Summary Admission Date Jan 19, 2017 at 05:45 Discharge Date: Jan 23, 2017 Admitting Diagnosis Osteo-arthritic degeneration right knee. Diagnosis: (1) Status post total right knee replacement Diagnosis: Principal Brief History This is a 66 year old female patient CBC/BMP: 01/21/17 0615 Significant Findings Laboratory Tests Test 01/21/17 06:15 Hemoglobin 9.4 GM/DL (11.6-15.3) Hematocrit 27.3 % (35.0-46.0) PE at Discharge dressing dry and intact. No calf tenderness. Sitting up in chair. Hospital Course Patient underwent a right total knee arthroplasty on day of admission. She received a course of prophylactic IV antibiotics and within 23 hours started on anticoagulation therapy. She began out of bed tolerating fluid and food well. She was switched to a by mouth pain med and tolerated the pain meds well. However she remains somewhat lethargic and was difficult to manage with therapy so she stayed an extra day and improve dramatically enough that the patient was able to be discharged in good condition with instructions for home healthcare. She was discharged to home afebrile tolerating food and fluids well and on by mouth pain meds in good condition. She has appointment for follow-up in the office. Pt Condition on Discharge: Good Discharge Disposition: Disch w/ Home Health Serv Discharge Instructions Diet Instructions: Heart Healthy Diet Activities You Can Perform: Weight Bearing as [place], Shower Only-No Bath Activities to Avoid: Bathing, Driving Andrew Ashby MD Jan 23, 2017 09:13
--- NOTE | 2017-01-23 09:53 | HHI.PR ---
Subjective Remarks doing great ambulated well with PT t down - with vigorous IS efforts, no cough no chills, no dysuria Objective Vitals Vital Signs Date Time Temp Pulse Resp B/P Pulse Ox O2 Delivery O2 Flow Rate FiO2 01/23/17 07:36 97.6 89 17 136/64 98 01/23/17 04:00 97.2 90 17 119/67 99 01/23/17 00:00 98.7 86 16 113/56 95 01/22/17 16:00 98.3 90 18 143/67 98 01/22/17 12:00 96.2 93 19 142/64 94 I/O 01/22/17 01/22/17 01/22/17 01/23/17 01/23/17 01/23/17 07:00 15:00 23:00 07:00 15:00 23:00 Intake Total 240 ml 700 ml 480 ml 240 ml Balance 240 ml 700 ml 480 ml 240 ml Intake Oral 240 ml 700 ml 480 ml 240 ml # Voids 1 3 1 1 # Bowel Movements 0 2 Result Diagram: 01/21/17 0615 Imaging Last Impressions Knee X-Ray 01/19/17 0816 Signed Impressions: Service Date/Time: Thursday, January 19, 2017 12:19 - CONCLUSION: Expected postoperative changes status post arthroplasty. Jatin Priest MD Objective Remarks awake and alert, oriented x 3 throat clear lungs clear, no rales or wheezes regular rhythm abdomen soft right knee- post op dressing in place no calf swelling or tenderness Procedures 01/19- right total knee replacement A/P Problem List: (1) Dyslipidemia ICD Code: E78.5 Status: Chronic (2) Hypertension ICD Code: I10 Status: Chronic (3) Diabetes ICD Code: E11.9 Status: Chronic (4) Status post total right knee replacement ICD Code: Z96.651 Status: Acute (5) History of heart artery stent ICD Code: Z95.5 Status: Chronic Assessment and Plan Status post total right knee replacement 01/19 ICD Code: Z96.651 Status: Acute Plan: PRN Pain treatment PT daily- home with home PT Ortho following Dyslipidemia ICD Code: E78.5 Status: Chronic Plan: on statins Hypertension ICD Code: I10 Status: Chronic Plan: Follow BP coninue home regimen Follow BP Adjust if needed, for control PRN Enalapril IV Diabetes Mellitus, insulin requiring ICD Code: E11.9 Status: Chronic Plan: SSI + Levemir. continue current regimen Diabetic Diet, states good hypoglycemic awareness Follow blood sugars continue on insulin regimen - ff up with PCP- Dr. Howard Paul d/w her- was on Metformin- she DC this- adverse reactions of diarrhea History of CAD stent ICD Code: Z95.5 Status: Chronic Plan: No chest symptoms continue on MARIE/home meds Low grade fever/tachycardia- Resolved likely post op atelectasis- encourage IS efforts- home with IS and instructions DC planning- home with home health PT today DME set up at home OP ff up with PCP Kathya Stark MD Jan 23, 2017 09:53
[2017-01-23] MEDS: ENOXAPARIN SODIUM 30 MG/0.3 ML SYRINGE SQ SCH (10:14)
[2017-01-23] MEDS: LACTATED RINGER'S 1000 ML INJ 1,000 ML IV SCH (12:16)
== END 2017-01-23 15:06 | disposition home health service (06) | DRG 470 ==
LOC: HSDI 01-19 05:45 → N06B 01-19 16:21
PROVIDERS: ADMIT Surgery; ATTEND Surgery
PROC: 3E0T3CZ (ICD-10-PCS; 2017-01-19)
PROC: 0SRC0J9 Replacement of Right Knee Joint with Synthetic Substitute, Cemented, Open Approach (ICD-10-PCS; principal; 2017-01-19 08:00)
DX: M17.11 Unilateral primary osteoarthritis, right knee (principal); I10 Essential (primary) hypertension; J95.89 Other postprocedural complications and disorders of respiratory system, not elsewhere classified; J98.11 Atelectasis; E11.9 Type 2 diabetes mellitus without complications; M21.069 Valgus deformity, not elsewhere classified, unspecified knee; Z79.4 Long term (current) use of insulin; E78.5 Hyperlipidemia, unspecified; I25.10 Atherosclerotic heart disease of native coronary artery without angina pectoris
CPT/HCPCS: 73560; 82948; 85014; 85018; 86850; 86900; 86901; 93005; 94150; C1776; C9290; J0131; J0690; J1650; J1815; J2250; J2270; J2405; J2710; J3010; J3370; J7050; J7120; L1830

== ENCOUNTER 2017-07-15 18:13 | Inpatient (IN) | payer OTHER, MEDICARE ==
[~2017-07-15] VITALS: Ht 165.1 cm; Wt 72.9 kg
[~2017-07-15 18:13] MED LIST changes: +ASPI1TAB69 PO; +ATOR1TAB18 PO; +CPMMACHINE; +GABA300C5 PO; -GLUCTAB PO; -LISI-360 PO; +LISI10TA3 PO; -LOVA20TA PO; -MELO7.5T PO; +METO25TA3 PO; +MISC-163; -NOVOLOGP2 SC; +NOVOLOGP2 SQ; +PLAV75TA29 PO; -SM A81CH CHEW; +WALKER WHEELS/F1 MIS; +ZETI10TA5 PO
[2017-07-15 18:14] VITALS: BP 139/88; PULSE 69; RESP 18; TEMP 98.6; O2SAT 96
--- NOTE | 2017-07-15 19:10 | RADRPT ---
EXAM DATE/TIME: 07/15/2017 18:58 [place] COMPARISON: No previous studies available for comparison. INDICATIONS : Chest pain and short of breath for 2 days. MEDICAL HISTORY : Hypertension. SURGICAL HISTORY : Coronary artery stent. ENCOUNTER: Initial ACUITY: 2 days PAIN SCORE: 4/10 LOCATION: Bilateral chest FINDINGS: PA and lateral views of the chest demonstrate the lungs to be hypoaerated with elevated diaphragms wi thout evidence of mass, infiltrate or effusion. The cardiomediastinal contours are unremarkable. Os seous structures are intact. CONCLUSION: No acute disease. Daniel Rausch MD on July 15, 2017 at 19:08 Board Certified Radiologist. This report was verified electronically.
[2017-07-15 20:22] LABS: AUTOMATED NEUTROPHIL # 3.4 TH/MM3 (1.8-7.7); BASOPHIL % 0.8 % (0.0-2.0); EOSINOPHIL # 0.1 TH/MM3 (0-0.4); EOSINOPHIL % 2.1 % (0.0-4.0); HEMATOCRIT 39.4 % (35.0-46.0); HEMO FLAGS DIFF FINAL; LYMPH % 36.4 % (9.0-44.0); LYMPHOCYTE # 2.2 TH/MM3 (1.0-4.8); MEAN CELL VOLUME 81.9 FL (80.0-100.0); MEAN CORPUSCULAR HEMOGLOBIN 27.7 PG (27.0-34.0); MEAN CORPUSCULAR HGB CONC 33.7 % (32.0-36.0); MONO % 5.7 % (0.0-8.0); PLATELET COUNT 236 TH/MM3 (150-450); RED CELL DISTRIBUTION WIDTH 13.7 % (11.6-17.2); WHITE BLOOD COUNT 6.1 TH/MM3 (4.0-11.0)
[2017-07-15 20:35] LABS: ANION GAP 6 MEQ/L (5-15); BICARBONATE 29.6 MEQ/L (21.0-32.0); BLOOD UREA NITROGEN 13 MG/DL (7-18); CHLORIDE 104 MEQ/L (98-107); GLOMERULAR FILTRATION RATE 110 ML/MIN (>89); POTASSIUM 3.3 MEQ/L (3.5-5.1); SODIUM (NA) 140 MEQ/L (136-145)
[2017-07-15 20:39] LABS: CREATINE KINASE 102 U/L (26-192)
--- NOTE | 2017-07-15 20:45 | PD ---
HPI Chief Complaint: Chest Pain Time Seen by Provider: 20:38 Travel History International Travel<30 days: No Contact w/Intl Traveler<30days: No Traveled to known affect area: No History of Present Illness HPI 66-year-old female with history diabetes, hypertension, CAD with stent placed in one and 2 years ago, presents to the emergency department for evaluation of chest pain intermittently occurring over the last 2 days. She is currently not having any pain. When she does have the pain, Patient states it is associated with diaphoresis and lightheadedness. It is substernal and pressure-like. Radiates to her back. She has had no nausea or vomiting. She cannot think of any exacerbating or alleviating factors. Patient is followed by Dr. Nieto and states she has last seen him approximately a month ago and everything was "okay." Patient denies any recent illnesses, fever, chills. She denies any other symptoms at this time. PFSH Past Medical History Hx Anticoagulant Therapy: Yes Arthritis: Yes Asthma: No Autoimmune Disease: No Anxiety: No Depression: No Heart Rhythm Problems: Yes Cancer: No Cardiac Catheterization: Yes (2004 WNL) Cardiovascular Problems: Yes High Cholesterol: Yes Chest Pain: Yes COPD: Yes Diabetes: Yes Diminished Hearing: No Endocrine: No Genitourinary: No Hepatitis: No Hiatal Hernia: No Hypertension: Yes Immune Disorder: No Musculoskeletal: Yes (OA) Neurologic: No Psychiatric: No Reproductive: No Respiratory: No Myocardial Infarction: Yes Seizures: No Thyroid Disease: No ?: Not Menopausal: Yes Past Surgical History Abdominal Surgery: No AICD: No Body Medical Devices: CARDIAC STENTS Cardiac Surgery: Yes (CARDIAC CATH, STENTS) Ear Surgery: No Endocrine Surgery: No Eye Surgery: No Genitourinary Surgery: Yes (BLADDER SUSPENSION 1972) Gynecologic Surgery: Yes (HYSTERECTOMY) Hysterectomy: Yes Joint Replacement: Yes (RIGHT TOTAL KNEE) Oral Surgery: Yes (TONSILLECTOMY) Pacemaker: No Thoracic Surgery: No Tonsillectomy: Yes Social History Alcohol Use: No Tobacco Use: No (QUIT 2002 DID SMOKE 1/2PPD x 15 YEARS) Substance Use: No (2-3 cups of coffee every 2-3 days) Allergies-Medications (Allergen,Severity, Reaction): Coded Allergies: No Known Allergies (Verified , 01/19/17) Reported Meds & Prescriptions Reported Meds & Active Scripts Active CPM-Continuous Passive Motion Machine 1 Ea Device 1 Ea .ROUTE DIRECTED 3-in-1 Bedside Toilet (Device) 1 Mis Mis 1 Ea .ROUTE DIRECTED Walker with Front Wheels (Device) 1 Mis Mis 1 Ea .ROUTE DIRECTED Reported Aspirin 81 Mg Chew 81 Mg CHEW DAILY Lisinopril 20 Mg Tab 20 Mg PO DAILY Novolog Flexpen Inj (Insulin Aspart) 300 Unit/3 Ml Pen 7 Units SQ TIDAC Plavix (Clopidogrel Bisulfate) 75 Mg Tab 75 Mg PO DAILY Metoprolol Tartrate 25 Mg Tab 25 Mg PO BID Atorvastatin (Atorvastatin Calcium) 80 Mg Tab 80 Mg PO HS Zetia (Ezetimibe) 10 Mg Tab 10 Mg PO DAILY Gabapentin 300 Mg Cap 300 Mg PO BID Levemir Inj (Insulin Detemir) 1,000 unit/ 10 ML Vial 25 Units SQ HS Do not mix with any other Insulin. Review of Systems Except as stated in HPI: all other systems reviewed are Neg Physical Exam Narrative GENERAL: Well-nourished female patient, in no acute distress. SKIN: Focused skin assessment warm/dry. HEAD: Atraumatic. Normocephalic. EYES: Pupils equal and round. No scleral icterus. No injection or drainage. ENT: No nasal bleeding or discharge. Mucous membranes pink and moist. NECK: Trachea midline. No JVD. CARDIOVASCULAR: Regular rate and rhythm. RESPIRATORY: No accessory muscle use. Diminished to auscultation. Breath sounds equal bilaterally. GASTROINTESTINAL: Abdomen soft, non-tender, nondistended. Hepatic and splenic margins not palpable. MUSCULOSKELETAL: No obvious deformities. No clubbing. No cyanosis. NEUROLOGICAL: Awake and alert. No obvious cranial nerve deficits. Motor grossly within normal limits. Normal speech. PSYCHIATRIC: Appropriate mood and affect; insight and judgment normal. Data Data Last Documented VS Vital Signs Date Time Temp Pulse Resp B/P (MAP) Pulse Ox O2 Delivery O2 Flow Rate FiO2 07/15/17 20:53 99 Room Air 07/15/17 20:53 07/15/17 18:14 98.6 69 18 Orders Orders Electrocardiogram (07/15/17 18:26) Complete Blood Count With Diff (07/15/17 18:) Basic Metabolic Panel (Bmp) (07/15/17 18:) Ckmb (Isoenzyme) Profile (07/15/17 18:) Troponin I (07/15/17 18:26) Iv Access Insert/Monitor (07/15/17 18:26) Ecg Monitoring (07/15/17 18:26) Oxygen Administration (07/15/17 18:26) Oximetry (07/15/17 18:26) Chest, Pa & Lat (07/15/17 18:26) CKMB (07/15/17 19:35) CKMB% (07/15/17 19:35) Aspirin Chew (Aspirin Chew) (07/15/17 21:00) Admit Order (Ed Use Only) (07/15/17 21:12) Labs Laboratory Tests Test 07/15/17 19:35 White Blood Count 6.1 TH/MM3 Red Blood Count 4.80 MIL/MM3 Hemoglobin 13.3 GM/DL Hematocrit 39.4 % Mean Corpuscular Volume 81.9 FL Mean Corpuscular Hemoglobin 27.7 PG Mean Corpuscular Hemoglobin Concent 33.7 % Red Cell Distribution Width 13.7 % Platelet Count 236 TH/MM3 Mean Platelet Volume 8.8 FL Neutrophils (%) (Auto) 55.0 % Lymphocytes (%) (Auto) 36.4 % Monocytes (%) (Auto) 5.7 % Eosinophils (%) (Auto) 2.1 % Basophils (%) (Auto) 0.8 % Neutrophils # (Auto) 3.4 TH/MM3 Lymphocytes # (Auto) 2.2 TH/MM3 Monocytes # (Auto) 0.3 TH/MM3 Eosinophils # (Auto) 0.1 TH/MM3 Basophils # (Auto) 0.0 TH/MM3 CBC Comment DIFF FINAL Differential Comment Blood Urea Nitrogen 13 MG/DL Creatinine 0.65 MG/DL Random Glucose 150 MG/DL Calcium Level 9.1 MG/DL Sodium Level 140 MEQ/L Potassium Level 3.3 MEQ/L Chloride Level 104 MEQ/L Carbon Dioxide Level 29.6 MEQ/L Anion Gap 6 MEQ/L Estimat Glomerular Filtration Rate 110 ML/MIN Total Creatine Kinase 102 U/L Creatine Kinase MB 2.6 NG/ML Troponin I 0.06 NG/ML [facility] Medical Decision Making Medical Screen Exam Complete: Yes Emergency Medical Condition: Yes Medical Record Reviewed: Yes Differential Diagnosis ACS versus chest wall pain versus pleuritic pain versus indigestion Narrative Course 66-year-old female presents to emergency room for evaluation of intermittent chest pain occurring over the last 2 days. Patient appears without distress. She is not having any pain at this time. Her vital signs are stable. Workup was initiated in triage. Laboratory Tests Test 07/15/17 19:35 White Blood Count 6.1 TH/MM3 Red Blood Count 4.80 MIL/MM3 Hemoglobin 13.3 GM/DL Hematocrit 39.4 % Mean Corpuscular Volume 81.9 FL Mean Corpuscular Hemoglobin 27.7 PG Mean Corpuscular Hemoglobin Concent 33.7 % Red Cell Distribution Width 13.7 % Platelet Count 236 TH/MM3 Mean Platelet Volume 8.8 FL Neutrophils (%) (Auto) 55.0 % Lymphocytes (%) (Auto) 36.4 % Monocytes (%) (Auto) 5.7 % Eosinophils (%) (Auto) 2.1 % Basophils (%) (Auto) 0.8 % Neutrophils # (Auto) 3.4 TH/MM3 Lymphocytes # (Auto) 2.2 TH/MM3 Monocytes # (Auto) 0.3 TH/MM3 Eosinophils # (Auto) 0.1 TH/MM3 Basophils # (Auto) 0.0 TH/MM3 CBC Comment DIFF FINAL Differential Comment Blood Urea Nitrogen 13 MG/DL Creatinine 0.65 MG/DL Random Glucose 150 MG/DL Calcium Level 9.1 MG/DL Sodium Level 140 MEQ/L Potassium Level 3.3 MEQ/L Chloride Level 104 MEQ/L Carbon Dioxide Level 29.6 MEQ/L Anion Gap 6 MEQ/L Estimat Glomerular Filtration Rate 110 ML/MIN Total Creatine Kinase 102 U/L Creatine Kinase MB 2.6 NG/ML Troponin I 0.06 NG/ML Last Impressions Chest X-Ray 07/15/17 1826 Signed Impressions: Service Date/Time: Saturday, July 15, 2017 18:58 - CONCLUSION: No acute disease. Daniel Rausch MD Patient does have elevated troponin of 0.06. In review of her records, patient has had elevated troponin with time but otherwise it has been negative. I discussed the patient my attending who agrees the patient benefit from admission and further evaluation of this. I discussed the patient with Dr. Espinoza. At the patient is not having any symptoms. Her EKG is normal sinus rhythm without any ST elevation or depression, she'll be admitted observation at this time. 2144 patient is having chest pain. 610 SL nitroglycerin as ordered. No EKG changes are noted. 2152 pt has had 2 SL nitro; on her 3rd and reports pain decreased to 4/10. A call has been placed to Dr. Espinoza. [address] Espinoza. Patient will be upgraded to a CIC bed. Heparin drip will be started. Diagnosis Primary Impression: Chest pain Qualified Codes: R07.9 - Chest pain, unspecified Additional Impressions: Elevated troponin History of heart artery stent NSTEMI (non-ST elevated myocardial infarction) Admitting Information Admitting Physician Requests: Admit Condition: Stable Margaret Wiley Jul 15, 2017 20:45
[2017-07-15 20:54] LABS: CKMB 2.6 NG/ML (0.5-3.6)
[2017-07-15] MEDS ORDERED: ASPIRIN 81 MG CHEW TAB CHEW ONE (21:00)
[2017-07-15] MEDS ORDERED: NALOXONE HCL 0.4 MG/ML AMP IV PUSH PRN (21:15)
[2017-07-15] MEDS ORDERED: SODIUM CHLORIDE 0.9% FLUSH 10 ML FLUSH IV FLUSH PRN (21:15)
[2017-07-15] MEDS ORDERED: NOVOINJ3 SQ (21:28)
[2017-07-15] MEDS ORDERED: LISI-515 PO (21:28)
[2017-07-15] MEDS ORDERED: ASPI81CH CHEW (21:28)
[2017-07-15 21:30] VITALS: BP 182/73; PULSE 59; RESP 18; O2SAT 99
[2017-07-15] MEDS ORDERED: POTASSIUM CHLORIDE 20 MEQ CONTROLLED RELEASE TAB PO ONE (21:30)
[2017-07-15 21:38] VITALS: BP 176/79; PULSE 70; RESP 18; O2SAT 99
[2017-07-15] MEDS: NITROGLYCERIN 0.4 MG SL 25 TABS/BTL SL SCH ×3 (21:38→21:47)
[2017-07-15] MEDS ORDERED: HEPARIN-D5W 25,000 U/250 ML 250 ML IV PRN (22:00)
[2017-07-15 22:12] VITALS: BP 151/71; PULSE 60; RESP 18; TEMP 98; O2SAT 100
[2017-07-15 23:15] VITALS: BP 160/76; PULSE 71; RESP 18; O2SAT 98
[2017-07-15 23:24] LABS: APTT (PATIENT) 25.1 SEC (24.3-30.1); PROTHROMBIN TIME - PATIENT 10.7 SEC (9.8-11.6)
[2017-07-15 23:54] VITALS: BP 187/96; PULSE 57; PULSE 63; RESP 18; TEMP 98.4; O2SAT 100
[2017-07-16] VITALS (24 sets, daily range): BP systolic 111–182; BP diastolic 55–81; PULSE 51–87; RESP 16–18; TEMP 98–99.5; O2SAT 97–100
[2017-07-16] MEDS ORDERED: ENALAPRILAT 2.5 MG/2 ML VIAL IV PUSH PRN (02:00)
[2017-07-16] MEDS ORDERED: METOPROLOL TARTRATE 25 MG TAB PO ONE (02:00)
--- NOTE | 2017-07-16 02:38 | HHI.HP ---
[facility]ician Tim Moya MD Admission Diagnosis CHEST PAIN Diagnoses: Travel History International Travel<30 Days: No Contact w/Intl Traveler <30 Da: No Traveled to Known Affected Are: No History of Present Illness hx from patient, ER communication, review of records chest pain for 2 days was sweating radiates to back no syncope assoicated with shortness of breath no peripheral edema hx of htn does not measure BPs at home pain comes and goes if she moves around, gets short of breath nitro takes away pain rest takes away pain initially no pleuritic nature worse with palpation of chest pain is sharp in nature no other symptoms Review of Systems Except as stated in HPI: all other systems reviewed are Neg Past Family Social History Past Medical History htn dm cad s/p stent - about couple of years ago Past Surgical History hysterectomy coronary angiogram tonsilectomy bladder opening right knee replacement in december 2016 Allergies: Coded Allergies: No Known Allergies (Verified , 01/19/17) Family History heart conditions, dm in family aunt, dad maternal aunt - also cad sister- afib Social History quit smoking 15yrs ago no etoh abuse- maybe once a year for new year no drugs lives with son and grandson; still driving Physical Exam Vital Signs Vital Signs Date Time Temp Pulse Resp B/P (MAP) Pulse Ox O2 Delivery O2 Flow Rate FiO2 07/16/17 01:01 62 07/16/17 00:00 59 07/15/17 23:54 57 07/15/17 23:54 98.4 63 18 187/96 (126) 100 07/15/17 23:15 71 18 160/76 (104) 98 Nasal Cannula 2.00 07/15/17 22:12 98.0 60 18 151/71 (97) 100 Room Air 07/15/17 21:38 70 18 176/79 (111) 99 Room Air 07/15/17 21:30 59 18 182/73 (109) 99 07/15/17 20:53 99 Room Air 07/15/17 20:53 07/15/17 18:14 98.6 69 18 139/88 (105) 96 Room Air Physical Exam GENERAL: This is a well-nourished, well-developed patient, in no apparent distress. SKIN: No rashes, ecchymoses or lesions. Cool and dry. HEAD: Atraumatic. Normocephalic. No temporal or scalp tenderness. EYES: Pupils equal round and reactive. Extraocular motions intact. No scleral icterus. No injection or drainage. ENT: Nose without bleeding, purulent drainage or septal hematoma. . Airway patent. NECK: Trachea midline. No JVD , nontender, no meningeal signs. CARDIOVASCULAR: Regular rate and rhythm without murmurs, gallops, or rubs. RESPIRATORY: Clear to auscultation. Breath sounds equal bilaterally. No wheezes , rales, or rhonchi. GASTROINTESTINAL: Abdomen soft, non-tender, nondistended. No guarding. MUSCULOSKELETAL: Extremities without clubbing, cyanosis, or edema. No calf tenderness. NEUROLOGICAL: Awake and alert. Motor and sensory grossly within normal limits. Normal speech. Laboratory Laboratory Tests Test 07/15/17 19:35 07/15/17 22:55 White Blood Count 6.1 Red Blood Count 4.80 Hemoglobin 13.3 Hematocrit 39.4 Mean Corpuscular Volume 81.9 Mean Corpuscular Hemoglobin 27.7 Mean Corpuscular Hemoglobin Concent 33.7 Red Cell Distribution Width 13.7 Platelet Count 236 Mean Platelet Volume 8.8 Neutrophils (%) (Auto) 55.0 Lymphocytes (%) (Auto) 36.4 Monocytes (%) (Auto) 5.7 Eosinophils (%) (Auto) 2.1 Basophils (%) (Auto) 0.8 Neutrophils # (Auto) 3.4 Lymphocytes # (Auto) 2.2 Monocytes # (Auto) 0.3 Eosinophils # (Auto) 0.1 Basophils # (Auto) 0.0 CBC Comment DIFF FINAL Differential Comment Blood Urea Nitrogen 13 Creatinine 0.65 Random Glucose 150 Calcium Level 9.1 Sodium Level 140 Potassium Level 3.3 Chloride Level 104 Carbon Dioxide Level 29.6 Anion Gap 6 Estimat Glomerular Filtration Rate 110 Total Creatine Kinase 102 Creatine Kinase MB 2.6 Troponin I 0.06 Prothrombin Time 10.7 Prothromb Time International Ratio 1.0 Activated Partial Thromboplast Time 25.1 Result Diagram: 07/15/17193407/15/171934 Imaging Last 48 hours Impressions Aorta CTA 07/16/17 0000 Signed Impressions: Service Date/Time: June 03:39 - CONCLUSION: 1. No evidence of dissection Gabriel Arizmendi MD Chest X-Ray 07/15/17 1826 Signed Impressions: Service Date/Time: Saturday, July 15, 2017 18:58 - CONCLUSION: No acute disease. Daniel Rausch MD Caprini VTE Risk Assessment Caprini VTE Risk Assessment: Mod/High Risk (score >= 2) Caprini Risk Assessment Model Point Value = 1 Point Value = 2 Point Value = 3 Point Value = 5 Age 41-60 Minor surgery BMI > 25 kg/m2 Swollen legs Varicose veins or History of unexplained or recurrent spontaneous Oral contraceptives or hormone replacement Sepsis (< 1 month) Serious lung disease, including pneumonia (< 1 month) Abnormal pulmonary function Acute myocardial infarction Congestive heart failure (< 1 month) History of inflammatory bowel disease Medical patient at bed rest Age 61-74 Arthroscopic surgery Major open surgery (> 45 min) Laparoscopic surgery (> 45 min) Malignancy Confined to bed (> 72 hours) Immobilizing plaster cast Central venous access Age >= 75 History of VTE Family history of VTE Factor V Leiden Prothrombin [id number] Lupus anticoagulant Anticardiolipin antibodies Elevated serum homocysteine Heparin-induced thrombocytopenia Other congenital or acquired thrombophilia Stroke (< 1 month) Elective arthroplasty Hip, pelvis, or leg fracture Acute spinal cord injury (< 1 month) Prophylaxis Regimen Total Risk Factor Score Risk Level Prophylaxis Regimen 0-1 Low Early ambulation 2 Moderate Order ONE of the following: *Sequential Compression Device (SCD) *Heparin 5000 units SQ BID 3-4 Higher Order ONE of the following medications: *Heparin 5000 units SQ TID *Enoxaparin/Lovenox 40 mg SQ daily (WT < 150 kg, CrCl > 30 mL/min) *Enoxaparin/Lovenox 30 mg SQ daily (WT < 150 kg, CrCl > 10-29 mL/min) *Enoxaparin/Lovenox 30 mg SQ BID (WT < 150 kg, CrCl > 30 mL/min) AND/OR *Sequential Compression Device (SCD) 5 or more Highest Order ONE of the following medications: *Heparin 5000 units SQ TID (Preferred with Epidurals) *Enoxaparin/Lovenox 40 mg SQ daily (WT < 150 kg, CrCl > 30 mL/min) *Enoxaparin/Lovenox 30 mg SQ daily (WT < 150 kg, CrCl > 10-29 mL/min) *Enoxaparin/Lovenox 30 mg SQ BID (WT < 150 kg, CrCl > 30 mL/min) AND *Sequential Compression Device (SCD) Assessment and Plan Assessment and Plan Impression: nstemi r/o aortic dissection- given pt has chest pain radiating to back dm cad s/p stent Plan: serial enzymes and ekg heparin drip for nstemi ntg prn cardio consult monitor fingersticks resume home meds Discussed Condition With patient, ER MD, nursing staff Physician Certification 2 Midnight Certification Type: Admission for Inpatient Services Order for Inpatient Services The services are ordered in accordance with Medicare regulations or non- Medicare payer requirements, as applicable. In the case of services not specified as inpatient-only, they are appropriately provided as inpatient services in accordance with the 2-midnight benchmark. Estimated LOS (days): 2 days is the estimated time the patient will need to remain in the hospital, assuming treatment plan goals are met and no additional complications. Post-Hospital Plan: Home Petra Espinoza MD Jul 16, 2017 02:38
[2017-07-16] MEDS ORDERED: GLUCAGON 1 MG/ML VIAL OTHER PRN ×2 (02:45→13:15)
[2017-07-16] MEDS ORDERED: DEXTROSE 50% IN WATER 50 ML VIAL(D50) IV PUSH PRN ×2 (02:45→13:15)
[2017-07-16] MEDS ORDERED: IOHEXOL 350 MG/ML 10 ML VIAL (for RAD DIAG) IVCONTRAST ONE (03:46)
[2017-07-16] MEDS ORDERED: HEPARIN SODIUM - IV 10,000 UNITS/10 ML VIAL IV PUSH PRN ×2 (04:00)
--- NOTE | 2017-07-16 04:28 | RADRPT ---
EXAM DATE/TIME: 07/16/2017 03:39 [place] COMPARISON: No previous studies available for comparison. INDICATIONS : Chest pain that radiates to back. Evaluate for dissection. IV CONTRAST: 85 cc Omnipaque 350 (iohexol) IV RADIATION DOSE: 23.52 CTDIvol (mGy) MEDICAL HISTORY : Hypertension. Myocardial infarction. Chronic obstructive pulmonary disease.Diabetes. SURGICAL HISTORY : None. ENCOUNTER: Initial ACUITY: 1 day PAIN SCALE: 7/10 LOCATION: chest TECHNIQUE: Volumetric scanning was performed using a multi-row detector CT scanner. The data was post processed with a variety of visualization algorithms including full volume maximum intensity projection, multi -planar sliding thin slab reformation, curved planar reformation, and surface rendering techniques. Using automated exposure control and adjustment of the mA and/or kV according to patient size, radiat ion dose was kept as low as reasonably achievable to obtain optimal diagnostic quality images. DICOM format image data is available electronically for review and comparison. FINDINGS: Examination of the lung pang demonstrates no evidence of pulmonary nodule. No pleural fluid is iden tified. The thyroid gland is enlarged in the midline in the substernal location. There is a bovine origin of the left common carotid artery from the thoracic arch Examination of the aortic arch demonstrates no evidence of aneurysm or dissection. The descending thoracic aorta is un remarkable and the aortic root is normal in size. The aorta is normal in caliber. There is no evidenc e of aneurysm or dissection. The renal artery origins are patent bilaterally. The celiac axis and sup erior mesenteric artery origins are also patent. An accessory left renal artery is present. CONCLUSION: 1. No evidence of dissection Gabriel Arizmendi MD on July 16, 2017 at 4:22 Board Certified Radiologist. This report was verified electronically.
[2017-07-16 06:59] LABS: AUTOMATED NEUTROPHIL # 2.5 TH/MM3 (1.8-7.7); BASOPHIL % 0.6 % (0.0-2.0); EOSINOPHIL # 0.1 TH/MM3 (0-0.4); EOSINOPHIL % 2.2 % (0.0-4.0); HEMATOCRIT 36.2 % (35.0-46.0); HEMO FLAGS DIFF FINAL; LYMPH % 42.4 % (9.0-44.0); LYMPHOCYTE # 2.1 TH/MM3 (1.0-4.8); MEAN CELL VOLUME 81.5 FL (80.0-100.0); MEAN CORPUSCULAR HEMOGLOBIN 27.1 PG (27.0-34.0); MEAN CORPUSCULAR HGB CONC 33.2 % (32.0-36.0); MONO % 5.3 % (0.0-8.0); NEUT % 49.5 % (16.0-70.0); PLATELET COUNT 213 TH/MM3 (150-450); RED BLOOD COUNT 4.44 MIL/MM3 (4.00-5.30); RED CELL DISTRIBUTION WIDTH 13.8 % (11.6-17.2)
[2017-07-16 07:05] LABS: APTT (PATIENT) 30.9 SEC (24.3-30.1)
[2017-07-16 07:16] LABS: BICARBONATE 29.8 MEQ/L (21.0-32.0); POTASSIUM 3.7 MEQ/L (3.5-5.1)
[2017-07-16] MEDS: GABAPENTIN 300 MG CAP PO SCH ×2 (08:11→21:21)
[2017-07-16] MEDS: LISINOPRIL 20 MG TAB PO SCH (08:12)
[2017-07-16] MEDS: EZETIMIBE 10 MG TAB PO SCH (08:12)
[2017-07-16] MEDS: ASPIRIN 81 MG CHEW TAB CHEW SCH (08:12)
[2017-07-16] MEDS: SODIUM CHLORIDE 0.9% FLUSH 10 ML FLUSH IV FLUSH SCH ×2 (08:13→21:21)
[2017-07-16] MEDS: CLOPIDOGREL 75 MG TAB PO SCH (09:11)
[2017-07-16] MEDS ORDERED: HEPARIN SODIUM - IV 10,000 UNITS/10 ML VIAL ONE (09:34)
[2017-07-16] MEDS ORDERED: VERAPAMIL HCL 5 MG/2 ML VIAL ONE (09:34)
[2017-07-16] MEDS ORDERED: NITROGLYCERIN INJ 5 ML ONE (09:34)
[2017-07-16] MEDS ORDERED: MIDAZOLAM HCL 2 MG/2 ML VIAL ONE (09:35)
[2017-07-16] MEDS ORDERED: HEPARIN-NS/PF INJ 1,000 ML ONE (09:35)
[2017-07-16] MEDS ORDERED: CLOPIDOGREL 75 MG TAB ONE (11:05)
--- NOTE | 2017-07-16 11:25 | EKG ---
Date Performed: 07/16/2017 Time Performed: 01:11:36 PTAGE: 66 years EKG: Sinus rhythm Normal ECG Compared to prior tracing no significant change PREVIOUS TRACING : 07/15/2017 21.44 DOCTOR: Parker Uribe Interpretating Date/Time 07/16/2017 11:22:22
[2017-07-16] MEDS ORDERED: ONDANSETRON HCL 4 MG/2 ML VIAL IV PUSH PRN (11:30)
[2017-07-16] MEDS ORDERED: MORPHINE SULFATE 4 MG/ML INJ IV PUSH PRN (11:30)
[2017-07-16] MEDS ORDERED: ACETAMINOPHEN 325 MG TAB PO PRN (11:30)
[2017-07-16] MEDS ORDERED: oxyCODONE/ACETAMINOPHEN 10 MG/325 MG TAB PO PRN (11:30)
[2017-07-16] MEDS ORDERED: oxyCODONE/ACETAMINOPHEN 5 MG/325 MG TAB PO PRN (11:30)
[2017-07-16] MEDS ORDERED: ATROPINE SULFATE 1 MG/ML VIAL IV PUSH PRN (11:30)
[2017-07-16] MEDS ORDERED: MISC INFORMATION XX ONE ×2 (11:30)
--- NOTE | 2017-07-16 11:33 | EKG ---
Date Performed: 07/15/2017 Time Performed: 19:16:58 PTAGE: 66 years EKG: Sinus rhythm WITH SHORT MS INTERVAL BORDERLINE ECG Compared to prior tracing no significant change PREVIOUS TRACING : 07/15/2017 19.03 DOCTOR: Parker Uribe Interpretating Date/Time 07/16/2017 11:28:54
--- NOTE | 2017-07-16 11:33 | CATHPROC ---
[employer] HIS Report Study Information Study Number Admission Scheduled Start Study Start [id number] Jul 15 2017 9:59PM 07/16/2017 Jul 16 2017 9:17AM [place] Service Cardiac Catheterization Admit Source Facility Department Other [facility] - It Support Consultant Physician and Clinical Staff Initial [employer] Package Symbol Stamper Vaishnavi Gonzalez,PATTY Recorder Karena Elizabeth RN Scrub Pablo Agee RCIS(BS) Procedures Performed Procedure Location (Site) Vessel Name Coronary Angiograms LCA Left Coronary Coronary Angiograms RCA Right Coronary Coronary Angiograms OM1 Prox CIRC Drug Eluting Inflatio OM1 Prox CIRC L Heart Cath PTCA OM1 Prox CIRC PTCA ADD ON'S Wire insertion Fem Art (right) Femoral Art Wire insertion Radial (right) Radial Art. Equipment Time Filling Station Laborer Description Size Mfg Part Number Used/Scraped [id number] 10:10 [employer] WIRE, ASAHI PROWATER 180CM 180CM Used *[id number] TRANSDUCER, TRUWAVE [id number] 10:12 BENNETT HENSON * Used W/STOCKCOCK *[id number] [facility]-502-10.0- INTRODUCER SET, 10:38 [employer] FR 5 SC-NT-U-SST Used MICROPUNCTURE, STIFFENED *[id number] 534-518T *[id number] 534-521T *[id number] 10:12 [employer] PACK, CCL CUSTOM * Used *[id number] 10:12 [employer] SUPPORT, ARTERIAL ADULT [id number] *[id number] Used [id number] 10:27 [employer] BALLOON, 2.0 X 12MM EUPHORA 12MM Used *[id number] BALLOON, 2.25 X 12MM NC [id number] 10:58 [employer] 12MM Used EUPHORA *[id number] 10:37 [employer] STENT, 2.25 15MM ACMDEN 2.25 15MM [id number] Used [id number] 10:11 [employer]/AVE EBU 3.0 Z2 GUIDE CATHETER FR 6 Used *[id number] 10:10 [email or web address] 30 WESLEY INDEFLATOR Used *[id number] BAND, RADIAL COMPRESSION TR [id number] 11:08 [employer] 24CM Used SHORT 24 *[id number] 10:12 [email or web address] WIRE, EXCHANGE 260CM 3MMJ 260CM Used *[id number] 10:12 NAMIC MANIFOLD, 4 PORT * Used *[id number] 09:56 [employer]COM[employer] OMNIPAQUE, 350 MG, 150ML 150ML [id number] Used 10:12 [employer] OMNIPAQUE, 350 MG, 150ML 150ML [id number] Used [id number] 10:12 [employer],WARM AIR CCL * Used *[id number] [id number] 10:39 [employer] SHEATH, FR6 TERUMO (10CM) FR 6 Used *[id number] SHEATH, FR6 TRANSRADIAL RM*[id number] 10:12 [employer]ICAL FR 6 Used SLENDER 10CM *[id number] Equipment Model, Serial, Lot Number and Expiration Data Description Model Number Serial Number Lot Number Expiration Date BALLOON, 2.25 X 12MM [place] [id number] 04-21-2019 EUPHORA INTRODUCER SET, [id number] 06-08-2020 MICROPUNCTURE, STIFFENED STENT, 2.25 15MM CAMDEN [id number] 05-08-2019 History: Allergies Allergy Reaction No Known Allergies History: Risk Factors Family History of Hypertension Dyslipidemia Previous OH Previous Heart Failure Premature CAD Yes Yes Yes Yes No Prior Valve Prior PCI Prior PCIDate Prior CABG Surgery No Yes 09/28/2014 No Cerebrovascular Peripheral Artery Chronic Lung On Dialysis Diabetes Diabetes Therapy Disease Disease Disease No No No Yes Yes Insulin History: Risk Factors Selection Items Previous OH (>7 days) History: Symptoms/Diagnosis Selection Items Chest pain SOB History: CV Disease Selection Items Known CAD OH History: Stress Tests Stress or Imaging Studies Performed No History: Other Disease Selection Items CAD COPD HTN History: Other Current Smoker Method Quit Packs a Day Years Used Pack Years No Cigarettes 14 Years Ago 1 15 15 NYHA II (symptoms..ordinary activity) Regular Diet Diabetic Diet Yes Yes Labs Hgb (g/dl) Hct (%) WBC (l/cumm) Platelets (thousands) 11.60-17.00 35.00-51.00 4.00-11.00 150.00-450.00 12.0 36.2 5 213 Glucose (mg/dl) BUN (mg/dl) Creatinine (mg/dl) BUN:Creatinine (1:x) 74.00-106.00 7.00-18.00 0.50-1.30 10.00-20.00 187 11 0.5 22 Na (meq/l) K (meq/l) 136.00-145.00 3.50-5.10 138 3.7 INR (PTT:PT) 0.90-1.10 1 Troponin I (ng/ml) Troponin T (ng/ml) CPK (u/l) CPK-MB (ng/ML) 0.02-0.05 0.40-2.10 26.00-308.00 0.50-3.60 0.06 0.42 102 2.6 Medication Medication Total Dose (Bolus/Oral) Medication Total Dosage/Unit 1% XYLOCAINE 25 mL CLOPIDOGREL 225 mg FENTANYL 100 mcg HEPARIN 6000 units NTG (IC) 400 mcg RADIAL COCKTAIL 5 mL (Bolus) VERSED 1 mg Medications (Bolus/Oral) Medication Time Given Dosage/Unit Administered By Reason VERSED 07/16/2017 9:52:59 AM 0.5 mg Vaishnavi Gonzalez 0.5 mg VERSED given in lab by Vaishnavi Gonzalez, PATTY in Left Antecubital via Peripheral IV. Ordered by Peter Fu FENTANYL 07/16/2017 9:53:00 AM 25 mcg Vaishnavi Gonzalez 25 mcg FENTANYL given in lab by Vaishnavi Gonzalez RN in Left Antecubital via Peripheral IV. Ordered by Peter Hines 1% XYLOCAINE 07/16/2017 9:53:03 AM 5 mL Peter Hines 5 mL 1% XYLOCAINE given in lab by Peter Hines in Right Wrist via Subcutaneous. Ordered by Peter Moralez Ntg 200mcg Verapamil 2.5mg Heparin RADIAL COCKTAIL 07/16/2017 9:54:39 AM 5 mL (Bolus) Peter Hines 2000U 5 mL (Bolus) RADIAL COCKTAIL given in lab by Peter Hines in Right Wrist via Radial. Using [So lution Name]. Ordered by Peter Hines Reason: Ntg 200mcg Verapamil 2.5mg Heparin 3400U. 07/16/2017 10:07:03 NTG (IC) 200 mcg Pablo Agee AM 200 mcg NTG (IC) given in lab by Pablo Agee RCIS(BS) in Right Wrist via Intra-coronary. Ordered by Peter Monsalve 07/16/2017 10:09:12 HEPARIN 6000 units Hesher, Vaishnavi AM 6000 units HEPARIN given in lab by Vaishnavi Gonzalez, PATTY in Left Antecubital via Peripheral IV. Ordered by Peter Hines 07/16/2017 10:11:54 VERSED 0.5 mg Vaishnavi Gonzalez AM 0.5 mg VERSED given in lab by Vaishnavi Gonzalez RN in Left Antecubital via Peripheral IV. Ordered by Peter Fu 07/16/2017 10:12:02 FENTANYL 25 mcg Vaishnavi Gonzalez AM 25 mcg FENTANYL given in lab by Vaishnavi Gonzalez RN in Left Antecubital via Peripheral IV. Ordered by Peter Hines 07/16/2017 10:39:20 1% XYLOCAINE 20 mL Peter Hines AM 20 mL 1% XYLOCAINE given in lab by Peter Hines in Right Groin via Subcutaneous. Ordered by Peter Fu 07/16/2017 10:43:58 FENTANYL 50 mcg Vaishnavi Gonzalez AM 50 mcg FENTANYL given in lab by Vaishnavi Gonzalez RN in Left Antecubital via Peripheral IV. Ordered by Peter Hines 07/16/2017 11:00:55 NTG (IC) 200 mcg Peter Hines AM 200 mcg NTG (IC) given in lab by Peter Hines in Right Groin via Intra-coronary. Ordered by Peter Fu 07/16/2017 11:15:30 CLOPIDOGREL 225 mg Vaishnavi Gonzalez AM 225 mg CLOPIDOGREL given in lab by Vaishnavi Gonzalez, PATTY via Oral. Ordered by Peter Hines Initial Case Assessment Cardiovascular HR Rhythm NIBP Chest Pain 61 Regular 124/96 0 Edema Present Skin color Skin None Normal Warm Dry Circulatory - Right Pulses Dorsalis Pedis Posterior Tibial Femoral Brachial Radial 2 2 2 2 2 Scale (0,1,2,3,4,d) Scale (0,1,2,3,4,d) Circulatory - Lower Extremities Color Lower Right Color Lower Left Normal Normal Neurological State Oriented to time-place- Alert Moves all extremities person Respiration - General Respiration Rate SpO2 (%) (B/min) 14 99 Final Case Assessment Cardiovascular HR Rhythm NIBP Chest Pain 97 regular 136/80 0 Edema Present Skin color Skin None Normal Warm Dry Circulatory - Right Pulses Dorsalis Pedis Posterior Tibial Femoral Brachial Radial 2 2 2 2 2 Scale (0,1,2,3,4,d) Scale (0,1,2,3,4,d) Circulatory - Lower Extremities Color Lower Right Color Lower Left Normal Normal Neurological State Oriented to time-place- Alert Moves all extremities person Respiration - General Respiration Rate SpO2 (%) (B/min) 16 97 Chronological Log Time Study Chronological Log 9:30:08 Patient arrived via Bed. 9:30:10 Patient Name, D.O.B, / Armband Verified By R.N. 9:30:10 Consent signed by the physician and the patient and verified by the It Support Consultant staff. 9:30:11 Pre-op and post- op instructions given; patient acknowledges understanding of instructions. 9:30:14 Allens test performed on the right radial and ulnar artery. 9:30:19 Patient has been NPO for More than 6Hrs. 9:30:21 Skin Breakdown-none per pt 9:30:36 Patient Warmer Placed on the Table. 9:30:37 Sabrina Prominences Protected 9:30:39 Verbal Stimulation=2 Physical Stimulation=2 Airway=2 Respiration=2 TOTAL=8. (0=absent, 1=li mited, 2=present) 9:30:51 History and physical on the chart or being dictated. 9:30:52 A # 20 IV was noted in the Antecubital (left). Grade = 0 0.9NS running at KVO 9:31:06 A # 20 IV was noted in the Antecubital (right). Grade = 0 Vitals capture started with the following parameters, Patient=Adult, Interval=5 min, Initial Pr ipbpye=431 mmHg, 9:33:59 Deflation Rate=5 mmHg, Cuff placed on Left Arm 9:34:27 HR=69 bpm, NPVH=704/96 mmhg, SpO2=98 %, Resp=14 B/min, Pain=0, Little=10, Jaime=2 Assessment: Initial Case, HR=61 BPM, Rhythm=Regular, DTDR=230/96 mmhg, Chest Pain=0, Edema=None , Color=Normal, Skin = Warm, Dry Right Pulses: Ariel Ped=2, Post Tib=2, Femoral=2, Brachial=2, Radial=2 9:38:14 Lower Right Extremities: Color=Normal Lower Left Extremities: Color=Normal Neurological: State=Alert, Ox3, TUTTLE Respiration: Resp=14 B/min, SpO2=99 % 9:40:11 HR=73 bpm, RCNF=750/72 mmhg, SpO2=96.0 %, Resp=12 B/min, Pain=0, Little=10, Jaime=2 9:44:46 HR=70 bpm, NIBP=86/32 mmhg, SpO2=98.0 %, Resp=11 B/min, Pain=0, Little=10, Jaime=2 9:45:53 Right Radial and groin(s) prepped with 2% chlorhexidine, and draped after a 3 min. waiting t bernie. 9:46:11 MD arrived. 9:48:51 Pressure channel 1 zeroed. 9:49:12 Reference ECG taken 9:49:57 HR=64 bpm, HEBE=560/79 mmhg, SpO2=99.0 %, Resp=16 B/min, Pain=0, Little=10, Jaime=2 Time Out. Correct patient, correct procedure, correct physician, power injector not loaded with contrast with surgical 9:52:36 team present. Time Out Concurred by MD and individual staff in procedure. 0.5 mg VERSED given in lab by Vaishnavi Gonzalez RN in Left Antecubital via Peripheral IV. Ordered by Peter Hines 9:52:59 G. 9:52:59 Case Start 25 mcg FENTANYL given in lab by Vaishnavi Gonzalez RN in Left Antecubital via Peripheral IV. Order ed by Donny 9:53:00 Peter Frazier 5 mL 1% XYLOCAINE given in lab by Peter Hines in Right Wrist via Subcutaneous. Ordered by Donny 9:53:03 Peter Frazier 9:54:17 Access site was Right Radial Artery. A SHEATH, FR6 TRANSRADIAL SLENDER 10CM FR 6 was advanced into the Radial (right) using the Michele fied Seldinger 9:54:25 technique. 5 mL (Bolus) RADIAL COCKTAIL given in lab by Peter Hines in Right Wrist via Radial. Usi ng [Solution Name]. 9:54:39 Ordered by Peter Hines Reason: Ntg 200mcg Verapamil 2.5mg Heparin 3400U. 9:54:42 HR=75 bpm, ERPX=833/84 mmhg, SpO2=98.0 %, Resp=15 B/min, Pain=0, Little=10, Jaime=2 A JR 4.0 INFINITI CATHETER FR 5 was advanced over a wire. OMNIPAQUE, 350 MG, 150ML 150ML was us ed for 9:55:33 injections. Recorded Pressure: LV, HR=85, Condition=Condition 1 9:56:50 (Left Ventricle) LV 186/11/17 Recorded Pressure: LV, Ao, HR=79, Condition=Condition 1 9:57:05 (Left Ventricle) LV 168/9/14, (Aorta) Ao 171/77/115 Recorded Pressure: Ao, HR=79, Condition=Condition 1 9:58:38 (Aorta) Ao 155/73/105 9:59:21 The RCA was injected and visualized at various angles. OMNIPAQUE, 350 MG, 150ML 150ML used. 9:59:43 HR=82 bpm, MOCM=717/76 mmhg, SpO2=95.0 %, Resp=20 B/min, Jaime=2 10:00:26 Catheter was removed A JL 3.5 INFINITI CATHETER FR 5 was advanced over a wire. OMNIPAQUE, 350 MG, 150ML 150ML was us ed for 10:01:38 injections. 10:04:25 The LCA was injected and visualized at various angles. OMNIPAQUE, 350 MG, 150ML 150ML used . 10:04:36 HR=86 bpm, TLVZ=802/80 mmhg, SpO2=97.0 %, Resp=14 B/min, Pain=0, Little=10, Jaime=2 200 mcg NTG (IC) given in lab by Pablo Agee RCIS(BS) in Right Wrist via Intra-coronary. Ordere d by Peter Hines 10:07:03 G. 6000 units HEPARIN given in lab by Vaishnavi Gonzalez, PATTY in Left Antecubital via Peripheral IV. Or dered by Donny, 10:09:12 Peter Frazier 10:09:39 HR=87 bpm, MJYO=983/84 mmhg, SpO2=96.0 %, Resp=14 B/min, Pain=0, Little=10, Jaime=2 10:09:43 OMNIPAQUE, 350 MG, 150ML 150ML and 30 WESLEY INDEFLATOR added. A EBU 3.0 Z2 GUIDE CATHETER FR 6 was advanced over a wire. OMNIPAQUE, 350 MG, 150ML 150ML was u sed for 10:11:03 injections. 0.5 mg VERSED given in lab by Vaishnavi Gonzalez, RN in Left Antecubital via Peripheral IV. Ordered by Peter Hines 10:11:54 G. 25 mcg FENTANYL given in lab by Vaishnavi Gonzalez, RN in Left Antecubital via Peripheral IV. Order ed by Donny, 10:12:02 Peter Frazier 10:14:44 HR=86 bpm, ARWB=442/75 mmhg, SpO2=97.0 %, Resp=13 B/min, Pain=0, Little=10, Jaime=2 10:15:14 A WIRE, ASAHI PROWATER 180CM 180CM was inserted via Radial (right). 10:19:43 HR=84 bpm, YZHP=253/60 mmhg, SpO2=95.0 %, Resp=8 B/min, Pain=0, Little=10, Jaime=2 10:21:55 Wire removed 10:21:57 A WIRE, EXCHANGE 260CM 3MMJ 260CM was inserted via Radial (right). 10:24:11 The previous wire was exchanged for a WIRE, ASAHI PROWATER 180CM 180CM. 10:24:36 HR=79 bpm, KSGM=305/83 mmhg, SpO2=98.0 %, Resp=15 B/min, Pain=0, Little=10, Jaime=2 10:29:04 Interventional wire has crossed the lesion 10:29:39 HR=86 bpm, YVMX=917/85 mmhg, SpO2=98.0 %, Resp=16 B/min, Pain=0, Little=10, Jaime=2 10:30:36 Activated Clotting Time Drawn A BALLOON, 2.0 X 12MM EUPHORA 12MM was inserted over WIRE, ASAHI PROWATER 180CM 180CM via the O M1 10:32:27 Prox. A BALLOON, 2.0 X 12MM EUPHORA 12MM over a WIRE, ASAHI PROWATER 180CM 180CM in the OM1 Prox was inflated 10:33:41 using a 30 WESLEY INDEFLATOR at 8 wesley for 30 sec. A BALLOON, 2.0 X 12MM EUPHORA 12MM over a WIRE, ASAHI PROWATER 180CM 180CM in the OM1 Prox was inflated 10:34:13 using a 30 WESLYE INDEFLATOR at 10 wesley for 30 sec. 10:34:44 HR=80 bpm, WYXA=088/78 mmhg, SpO2=97.0 %, Resp=17 B/min, Pain=0, Little=10, Jaime=2 10:36:55 Balloon Removed. A STENT, 2.25 15MM CAMDEN 2.25 15MM was advanced through a EBU 3.0 Z2 GUIDE CATHETER FR 6 over a WIRE, 10:37:00 ASAHI PROWATER 180CM 180CM. 10:38:45 Stent not deployed. Stent removed and intact. 10:39:06 Wire removed 10:39:07 Catheter was removed 20 mL 1% XYLOCAINE given in lab by Peter Hines in Right Groin via Subcutaneous. Ordered by Donny, 10:39:20 Peter Frazier 10:39:45 HR=72 bpm, TUKQ=988/73 mmhg, SpO2=98.0 %, Resp=14 B/min, Pain=0, Little=10, Jaime=2 10:39:59 ACT (Normal Range 90-180) = 467 10:40:19 Access site was Right Femoral Artery. 10:43:15 A SHEATH, FR6 TERUMO (10CM) FR 6 was advanced into the Fem Art (right) using the Modified S alexandriadinger technique. 50 mcg FENTANYL given in lab by Vaishnavi Gonzalez, RN in Left Antecubital via Peripheral IV. Order ed by Donny, 10:43:58 Peter Frazier 10:44:44 HR=80 bpm, YBJV=846/81 mmhg, SpO2=98.0 %, Resp=14 B/min, Pain=0, Little=10, Jaime=2 10:46:36 Activated Clotting Time Drawn 10:47:21 An injection in the Fem Art (right) was made through the SHEATH, FR6 TERUMO (10CM) FR 6. 10:48:00 ACT (Normal Range 90-180) = 398 10:48:10 A WIRE, EXCHANGE 260CM 3MMJ 260CM was inserted via Fem Art (right). A EBU 3.0 Z2 GUIDE CATHETER FR 6 was advanced over a wire. OMNIPAQUE, 350 MG, 150ML 150ML was u sed for 10:48:14 injections. 10:49:46 HR=76 bpm, PINB=276/70 mmhg, SpO2=98.0 %, Resp=11 B/min, Pain=0, Little=10, Jaime=2 10:50:41 Wire removed 10:50:44 A WIRE, ASAHI PROWATER 180CM 180CM was inserted via Fem Art (right). 10:52:36 Interventional wire has crossed the lesion A STENT, 2.25 15MM CAMDEN 2.25 15MM was advanced through a EBU 3.0 Z2 GUIDE CATHETER FR 6 over a WIRE, 10:54:35 ASAHI PROWATER 180CM 180CM. 10:54:49 HR=81 bpm, REAM=198/70 mmhg, SpO2=96.0 %, Resp=16 B/min, Pain=0, Little=10, Jaime=2 A STENT, 2.25 15MM CAMDEN 2.25 15MM was deployed using a 30 WESLEY INDEFLATOR at 12 atmospheres for 20 seconds 10:55:46 in the OM1 Prox. 10:56:39 Delivery device removed 10:57:21 The OM1 Prox was injected and visualized at various angles. OMNIPAQUE, 350 MG, 150ML 150ML used. A BALLOON, 2.25 X 12MM NC EUPHORA 12MM over a WIRE, ASAHI PROWATER 180CM 180CM in the OM1 Prox was 10:59:00 inflated using a 30 WESLEY INDEFLATOR at 12 wesley for 20 sec. A BALLOON, 2.25 X 12MM NC EUPHORA 12MM over a WIRE, ASAHI PROWATER 180CM 180CM in the OM1 Prox was 10:59:31 inflated using a 30 WESLEY INDEFLATOR at 16 wesley for 20 sec. 10:59:42 HR=84 bpm, EDNS=335/79 mmhg, SpO2=98.0 %, Resp=15 B/min, Pain=0, Little=10, Jaime=2 200 mcg NTG (IC) given in lab by Peter Hines in Right Groin via Intra-coronary. Ordered by Peter Hines 11:00:55 G. 11:01:50 The OM1 Prox was injected and visualized at various angles. OMNIPAQUE, 350 MG, 150ML 150ML used. 11:02:10 Wire removed 11:02:35 Catheter was removed 11:03:52 In the Fem Art (right) the SHEATH, FR6 TERUMO (10CM) FR [address] by Peter Hines 11:04:00 Patient moved to stretcher 11:04:45 HR=81 bpm, DBAF=549/79 mmhg, SpO2=96.0 %, Resp=10 B/min, Pain=0, Little=10, Jaime=2 11:06:04 Sterile dressing applied to Right Groin Site Radial Compression Device Used. 11 mLs of air placed in BAND, RADIAL COMPRESSION TR SHORT 24 24 CM. Affected 11:07:30 hand 98 % O2 saturation. 11:09:42 HR=81 bpm, NWXQ=121/80 mmhg, SpO2=98.0 %, Resp=19 B/min, Pain=0, Little=10, Jaime=2 11:11:07 No case complications noted. Assessment: Final Case, HR=97 BPM, Rhythm=regular, OWWP=347/80 mmhg, Chest Pain=0, Edema=None, Color=Normal, Skin = Warm, Dry Right Pulses: Ariel Ped=2, Post Tib=2, Femoral=2, Brachial=2, Radial=2 11:11:08 Lower Right Extremities: Color=Normal Lower Left Extremities: Color=Normal Neurological: State=Alert, Ox3, TUTTLE Respiration: Resp=16 B/min, SpO2=97 % 11:12:07 Cine recording checked. 11:12:20 PATTY Mariano om [facility] notified of successful intervention. 11:12:35 Bedside Report will be given. 11:12:38 Implantable Device card placed in patient's chart. 11:12:47 Contrast Scanned 11:12:48 Defibrillator and ground pads removed. Skin intact. 11:12:49 Verbal Stimulation=2 Physical Stimulation=2 Airway=2 Respiration=2 TOTAL=8. (0=absent, 1=li mited, 2=present) 11:13:10 A Left Heart Cath was performed. 11:14:45 HR=66 bpm, XFOR=988/74 mmhg, Resp=19 B/min, Pain=0, Little=10, Jaime=2 11:15:30 225 mg CLOPIDOGREL given in lab by Vaishnavi Gonzalez RN via Oral. Ordered by Chuy Hines 11:16:00 [facility] End Study - Contrast Media Used In Study Contrast Total Opened (mL) Total Used (mL) Total Wasted (mL) Omnipaque 300 170 130 End Study - Maximum Contrast Load Max Contrast Load (mL) 845.9 End Study - Radiation Exposure Fluoro Time (minutes) 25.8 End Study - Patient Disposition Complications Transferred To Interventional Outcome No Telemetry Bed successful
[2017-07-16] MEDS ORDERED: SODIUM CHLOR 0.9% 250 ML INJ 250 ML IV PRN (12:30)
[2017-07-16] MEDS ORDERED: IOHEXOL 350 MG/ML 100 ML BTL (for Cath Lab) OTHER ONE (13:05)
[2017-07-16] MEDS ORDERED: IOHEXOL 350 MG/ML 50 ML BTL (for Cath Lab) OTHER ONE (13:05)
[2017-07-16] MEDS ORDERED: hydrALAZINE HCL 20 MG/ML VIAL IV PUSH ONE (13:15)
[2017-07-16] MEDS ORDERED: hydrALAZINE HCL 20 MG/ML VIAL IV PUSH PRN ×2 (13:30→14:00)
[2017-07-16] MEDS: METOPROLOL TARTRATE 25 MG TAB PO SCH ×2 (13:53→21:21)
[2017-07-16] MEDS: INSULIN ASPART SUPPLEMENTAL SCALE SQ SCH ×2 (17:54→21:00)
--- NOTE | 2017-07-16 17:54 | ECHRPT ---
Indication: NSTEMI CONCLUSIONS Normal left ventricular size. Wall thickness is normal. The left ventricular systolic function is low normal with an estimated ejection fraction in the rang e of 50- 55%. Capus-uo-kkfn mitral valve regurgitation. Aortic valve sclerosis is present. Trace aortic valve regurgitation. There is trace tricuspid valve regurgitation. The estimated pulmonary arterial pressure is 31 mmHg. The pulmonary valve is not well visualized. BP: 182 / 81 HR: 67 Rhythm: MEASUREMENTS (Male / Female) Normal Values Technical Quality:Good 2D ECHO LV Diastolic Diameter PLAX 4.3 cm 4.2 - 5.9 / 3.9 - 5.3 cm LV Systolic Diameter PLAX 3.4 cm IVS Diastolic Thickness 1.2 cm 0.6 - 1.0 / 0.6 - 0.9 cm LVPW Diastolic Thickness 0.8 cm 0.6 - 1.0 / 0.6 - 0.9 cm LV Relative Wall Thickness 0.4 RV Internal Dim ED PLAX 1.9 cm LA Systolic Diameter LX 3.5 cm 3.0 - 4.0 / 2.7 - 3.8 cm M-MODE Aortic Root Diameter MM 2.8 cm AV Cusp Separation MM 1.8 cm DOPPLER AV Peak Velocity 162.0 cm/s AV Peak Gradient 10.5 mmHg AI Peak Velocity 278.0 cm/s AI Peak Gradient 30.9 mmHg AI Pressure Half Time 468.0 ms LVOT Peak Velocity 96.3 cm/s LVOT Peak Gradient 3.7 mmHg Mitral E Point Velocity 77.0 cm/s Mitral A Point Velocity 74.0 cm/s Mitral E to A Ratio 1.0 TR Peak Velocity 254.0 cm/s TR Peak Gradient 25.8 mmHg FINDINGS LEFT VENTRICLE Normal left ventricular size. Wall thickness is normal. The left ventricular systolic function is low normal with an estimated ejection fraction in the rang e of 50- 55%. RIGHT VENTRICLE Normal right ventricular size and systolic function. LEFT ATRIUM The left atrial size is normal. RIGHT ATRIUM The right atrial size is normal. ATRIAL SEPTUM Normal atrial septal thickness without atrial level shunting by limited color doppler interrogation. AORTA The aortic root and proximal ascending aorta are normal in size on limited imaging. MITRAL VALVE [id number] mitral valve regurgitation. AORTIC VALVE Aortic valve sclerosis is present. Trace aortic valve regurgitation. TRICUSPID VALVE There is trace tricuspid valve regurgitation. The estimated pulmonary arterial pressure is 31 mmHg. PULMONARY VALVE The pulmonary valve is not well visualized. VESSELS The inferior vena cava is normal in size. PERICARDIUM No pericardial effusion. Edouard Joe MD, FACC (Electronically Signed) Final Date:16 July 2017 17:53
[2017-07-16] MEDS ORDERED: ATORVASTATIN 80 MG TAB PO SCH (21:00)
--- NOTE | 2017-07-16 21:13 | HHI.PR ---
Addendum to Inpatient Note Addendum Reason: Additional Documentation Additional Information Deferred entry - patient seen at 12:30 pm - patient is sp cardiac catheterization. Denies cp/sob. Patient is AA0x3, nad. S1S2 RRR, no MRG, clear lungs BL. PAtient with NSTEMI - sp cardiac cath by Dr Hines case discussed with him. COY placed on circumflex. Will monitor overnight, if stable in am will DC. Bruce Joshua MD Jul 16, 2017 21:13
--- NOTE | 2017-07-16 21:43 | EKG ---
Date Performed: 07/15/2017 Time Performed: 21:44:56 PTAGE: 66 years EKG: Sinus rhythm VOLTAGE CRITERIA FOR LVH NONSPECIFIC T-WAVE ABNORMALITY ABNORMAL ECG PREVIOUS TRACING : 07/15/2017 19.16 Compared to prior tracing no significant change DOCTOR: Parker Uribe Interpretating Date/Time 07/16/2017 21:41:29
[2017-07-16 22:20] LABS: BICARBONATE 26.4 MEQ/L (21.0-32.0); POTASSIUM 3.2 MEQ/L (3.5-5.1)
[2017-07-16] MEDS ORDERED: POTASSIUM CHLORIDE 25 MEQ EFFERVESCENT TAB PO ONE (22:30)
--- NOTE | 2017-07-16 23:15 | MB ---
cc: PETER LUNDBERG DO DATE OF CONSULTATION July 16, 2017 REASON FOR CONSULTATION NSTEMI. HISTORY OF PRESENT ILLNESS Shweta Fernandez is a pleasant 66-year-old female who presented to [facility] Emergency Room on July 15, 2017 due to chest pain. She states that the chest pains have been on and off for the past few days. When she gets it she gets diaphoretic and short of breath. It radiates somewhat to her left shoulder and into her back. She denies syncope. She states the nitro has been taking it away. She also sits down to rest and it usually goes away. In seeing her she is currently chest pain free without shortness of breath. PAST MEDICAL HISTORY 1. Hypertension. 2. Diabetes mellitus. 3. Coronary artery disease. PAST SURGICAL HISTORY 1. Hysterectomy. 2. Coronary angiogram with possible stenting. 3. Tonsillectomy. 4. Bladder opening. 5. Right knee replacement. ALLERGIES NO KNOWN DRUG ALLERGIES. MEDICATIONS 1. Plavix 75 milligrams daily. 2. Zetia 10 milligrams daily. 3. Lipitor 80 milligrams every night. 4. Metoprolol tartrate 25 milligrams b.i.d. 5. Lisinopril 20 milligrams daily. 6. Aspirin 81 milligrams daily. 7. Gabapentin 300 milligrams b.i.d. 8. NovoLog 7 units t.i.d. 9. Levemir 25 units every night. FAMILY HISTORY Denies premature coronary artery disease or sudden cardiac within the family. SOCIAL HISTORY The patient previously smoked but quit 15 years ago. Denies alcohol or drug abuse. REVIEW OF SYSTEMS 14-systems were reviewed including osteopathic. Pertinent positives and negatives above, otherwise negative. PHYSICAL EXAMINATION VITAL SIGNS: Temperature 98.1, heart rate 67, blood pressure 180/81, respirations 16, pulse ox 100% on 2 liters. GENERAL: In general, the patient appears well in no acute distress. Alert, awake and oriented x3. HEENT: Extraocular muscles intact. Mucous membranes moist. NECK: Supple. No JVD at 45 degrees. No carotid bruits heard bilaterally. Carotid upstroke is brisk in nature. HEART: Heart is regular rate and rhythm. Positive first and second heart sounds with no noted murmurs, gallops or rubs. LUNGS: Clear to auscultation bilaterally. No wheezes, rales or rhonchi. ABDOMEN: Soft, nontender, nondistended. No organomegaly noted. EXTREMITIES: Show no clubbing, cyanosis or edema. Femoral and distal pulses intact bilaterally. NEUROLOGICALLY: No focal deficits. SKIN: Warm, dry and intact. OSTEOPATHIC: No kyphoscoliosis, lordosis or paraspinal tender points. LABORATORY FINDINGS Hemoglobin 12.2, hematocrit 36.2, platelets 213. Potassium 3.7, BUN 11, creatinine 0.56. Troponin 0.42. CARDIOLOGY STUDIES Electrocardiogram (July 16, 2017 at 01:11) sinus rhythm, No acute ST-T wave changes. IMPRESSION 1. NSTEMI. 2. Chest pain concerning for coronary insufficiency. 3. Accelerated hypertension. 4. Diabetes mellitus. 5. History of coronary artery disease. RECOMMENDATIONS 1. Ms. Fernandez presented with chest pain concerning for coronary insufficiency as well as an elevated troponin. Because of this she will be recommended cardiac catheterization. 2. Risks, benefits and alternatives were explained to her and she consents as such. 3. We will continue on her aspirin and Plavix therapy at this time. 4. Overall, she will need blood pressure control before discharge. 5. Further recommendations based on coronary visualization. Thank you for allowing me to see Shweta Fernandez. If there are any questions please do not hesitate to call. Peter Lundberg DO VGP/EO /10:29 PM /10:57 PM
[2017-07-17] VITALS (12 sets, daily range): BP systolic 116–132; BP diastolic 60–65; PULSE 57–85; RESP 18; TEMP 98.2–98.5; O2SAT 98–99
[2017-07-17 06:52] LABS: AUTOMATED NEUTROPHIL # 4.3 TH/MM3 (1.8-7.7); BASOPHIL % 0.6 % (0.0-2.0); EOSINOPHIL # 0.1 TH/MM3 (0-0.4); HEMATOCRIT 34.2 % (35.0-46.0); HEMO FLAGS DIFF FINAL; LYMPH % 31.5 % (9.0-44.0); LYMPHOCYTE # 2.2 TH/MM3 (1.0-4.8); MEAN CELL VOLUME 82.2 FL (80.0-100.0); MEAN CORPUSCULAR HEMOGLOBIN 27.2 PG (27.0-34.0); MEAN CORPUSCULAR HGB CONC 33.1 % (32.0-36.0); MONO % 5.4 % (0.0-8.0); NEUT % 61.5 % (16.0-70.0); PLATELET COUNT 218 TH/MM3 (150-450); RED BLOOD COUNT 4.17 MIL/MM3 (4.00-5.30); RED CELL DISTRIBUTION WIDTH 13.9 % (11.6-17.2)
[2017-07-17 07:33] LABS: BICARBONATE 27.7 MEQ/L (21.0-32.0); POTASSIUM 3.9 MEQ/L (3.5-5.1)
[2017-07-17] MEDS: INSULIN ASPART SUPPLEMENTAL SCALE SQ SCH (08:25)
[2017-07-17] MEDS: ASPIRIN 81 MG CHEW TAB CHEW SCH (08:25)
[2017-07-17] MEDS: GABAPENTIN 300 MG CAP PO SCH (08:25)
[2017-07-17] MEDS: METOPROLOL TARTRATE 25 MG TAB PO SCH (08:25)
[2017-07-17] MEDS: LISINOPRIL 20 MG TAB PO SCH (08:26)
[2017-07-17] MEDS: EZETIMIBE 10 MG TAB PO SCH (08:26)
[2017-07-17] MEDS: SODIUM CHLORIDE 0.9% FLUSH 10 ML FLUSH IV FLUSH SCH (08:26)
[2017-07-17] MEDS: CLOPIDOGREL 75 MG TAB PO SCH (08:26)
[2017-07-17] MEDS ORDERED: PNEUMOCOCCAL POLYVALENT INJ 25 MCG/0.5 ML SYR IM ONE (10:00)
[2017-07-17] MEDS ORDERED: INFLUENZA VIRUS VACCINE (QUADRIVALENT) 0.5 ML SYR IM ONE (10:00)
--- NOTE | 2017-07-17 10:31 | PD.CARD.PN ---
Subjective Subjective Remarks No chest pain/SOB Doing well Objective Medications Current Medications Medications (Trade) Dose Ordered Sig/Taz Route Start Time Stop Time Status Last Admin (NS Flush) 2 ml UNSCH PRN IV FLUSH 07/15/17 21:15 (NS Flush) 2 ml BID IV FLUSH 07/16/17 09:00 07/17/17 08:26 (Narcan Inj) 0.4 mg UNSCH PRN IV PUSH 07/15/17 21:15 (Vasotec Inj) 2.5 mg Q6H PRN IV PUSH 07/16/17 02:00 (Aspirin Chew) 81 mg DAILY CHEW 07/16/17 09:00 07/17/17 08:25 (Lipitor) 80 mg HS PO 07/16/17 21:00 07/16/17 21:21 (Plavix) 75 mg DAILY PO 07/16/17 09:00 07/17/17 08:26 (Zetia) 10 mg DAILY PO 07/16/17 09:00 07/17/17 08:26 (Neurontin) 300 mg BID PO 07/16/17 09:00 07/17/17 08:25 (Prinivil) 20 mg DAILY PO 07/16/17 09:00 07/17/17 08:26 (Lopressor) 25 mg BID PO 07/16/17 09:00 07/17/17 08:25 (Tylenol) 325 mg Q4H PRN PO 07/16/17 11:30 (Percocet 5-325 Mg) 1 tab Q4H PRN PO 07/16/17 11:30 (Percocet 10-325 Mg) 1 tab Q4H PRN PO 07/16/17 11:30 (Morphine Inj) 2 mg Q30M PRN IV PUSH 07/16/17 11:30 (Atropine Inj) 0.5 mg UNSCH PRN IV PUSH 07/16/17 11:30 Sodium Chloride 250 ml @ 500 mls/hr UNSCH X1 PRN IV 07/16/17 12:30 07/17/17 23:59 (Zofran Inj) 4 mg Q4H PRN IV PUSH 07/16/17 11:30 (Apresoline Inj) 10 mg Q30M PRN IV PUSH 07/16/17 14:00 (D50w (Vial) Inj) 50 ml UNSCH PRN IV PUSH 07/16/17 13:15 (Glucagon Inj) 1 mg UNSCH PRN OTHER 07/16/17 13:15 (NovoLOG SUPPLEMENTAL SCALE) 1 ACHS SLIDING SCALE SQ 07/16/17 17:00 07/17/17 08:25 (Apresoline Inj) 10 mg Q4H PRN IV PUSH 07/16/17 13:30 Future Hold Vital Signs / I&O Vital Signs Date Time Temp Pulse Resp B/P (MAP) Pulse Ox O2 Delivery O2 Flow Rate FiO2 07/17/17 09:00 72 07/17/17 08:00 72 07/17/17 07:15 82 07/17/17 07:15 98.5 67 18 116/60 (78) 99 07/17/17 06:00 66 07/17/17 05:00 85 07/17/17 04:00 60 07/17/17 03:00 61 07/17/17 03:00 98.4 70 18 132/65 (87) 98 07/17/17 02:00 62 07/17/17 01:00 76 07/17/17 00:00 64 07/16/17 23:00 99.5 87 18 111/56 (74) 98 07/16/17 23:00 63 07/16/17 22:00 68 07/16/17 21:00 70 07/16/17 20:00 98.0 63 18 116/55 (75) 97 07/16/17 20:00 71 07/16/17 19:00 61 07/16/17 18:00 72 07/16/17 17:00 68 07/16/17 16:00 62 07/16/17 15:30 98.6 74 16 141/63 (89) 100 07/16/17 15:00 58 07/16/17 14:00 62 07/16/17 13:00 60 07/16/17 13:00 76 07/16/17 12:00 62 07/16/17 11:00 98.4 68 16 138/72 (94) 100 I/O 07/16/17 07/16/17 07/16/17 07/17/17 07/17/17 07/17/17 07:00 15:00 23:00 07:00 15:00 23:00 Intake Total 240 ml 480 ml 240 ml Output Total 200 ml 1200 ml 650 ml Balance 40 ml -720 ml -410 ml Intake Oral 240 ml 480 ml 240 ml Output Urine Total 200 ml 1200 ml 650 ml # Voids 2 Physical Exam GENERAL: NAD, AAOx3 SKIN: Warm and dry. HEAD: Atraumatic. Normocephalic. EYES: Pupils equal and round. No scleral icterus. No injection or drainage. ENT: No nasal bleeding or discharge. Mucous membranes pink and moist. NECK: Trachea midline. No JVD. CARDIOVASCULAR: Regular rate and rhythm. No murmurs noted RESPIRATORY: No accessory muscle use. Clear to auscultation. Breath sounds equal bilaterally. GASTROINTESTINAL: Abdomen soft, non-tender, nondistended. Hepatic and splenic margins not palpable. MUSCULOSKELETAL: Extremities without clubbing, cyanosis, or edema. No obvious deformities. Right radial no hematoma, neurovascularly intact distally. Right femoral no hematoma NEUROLOGICAL: Awake and alert. No obvious cranial nerve deficits. Motor grossly within normal limits. Five out of 5 muscle strength in the arms and legs. Normal speech. PSYCHIATRIC: Appropriate mood and affect; insight and judgment normal. Laboratory Laboratory Tests Test 07/16/17 21:05 07/17/17 05:13 Blood Urea Nitrogen 13 MG/DL 16 MG/DL Creatinine 0.74 MG/DL 0.57 MG/DL Random Glucose 230 MG/DL 151 MG/DL Calcium Level 8.9 MG/DL 8.9 MG/DL Sodium Level 140 MEQ/L 141 MEQ/L Potassium Level 3.2 MEQ/L 3.9 MEQ/L Chloride Level 106 MEQ/L 108 MEQ/L Carbon Dioxide Level 26.4 MEQ/L 27.7 MEQ/L Anion Gap 8 MEQ/L 5 MEQ/L Estimat Glomerular Filtration Rate 95 ML/MIN 128 ML/MIN White Blood Count 7.0 TH/MM3 Red Blood Count 4.17 MIL/MM3 Hemoglobin 11.3 GM/DL Hematocrit 34.2 % Mean Corpuscular Volume 82.2 FL Mean Corpuscular Hemoglobin 27.2 PG Mean Corpuscular Hemoglobin Concent 33.1 % Red Cell Distribution Width 13.9 % Platelet Count 218 TH/MM3 Mean Platelet Volume 8.9 FL Neutrophils (%) (Auto) 61.5 % Lymphocytes (%) (Auto) 31.5 % Monocytes (%) (Auto) 5.4 % Eosinophils (%) (Auto) 1.0 % Basophils (%) (Auto) 0.6 % Neutrophils # (Auto) 4.3 TH/MM3 Lymphocytes # (Auto) 2.2 TH/MM3 Monocytes # (Auto) 0.4 TH/MM3 Eosinophils # (Auto) 0.1 TH/MM3 Basophils # (Auto) 0.0 TH/MM3 CBC Comment DIFF FINAL Differential Comment Assessment and Plan Problem List: (1) CAD (coronary artery disease) ICD Codes: I25.10 - Atherosclerotic heart disease of [place] coronary artery without angina pectoris (2) NSTEMI (non-ST elevated myocardial infarction) ICD Codes: I21.4 - Non-ST elevation (NSTEMI) myocardial infarction Status: Acute (3) Chest pain ICD Codes: R07.9 - Chest pain, unspecified Status: Acute (4) History of heart artery stent ICD Codes: Z95.5 - Presence of coronary angioplasty implant and graft Status: Chronic (5) Diabetes ICD Codes: E11.9 - Diabetes mellitus Status: Chronic (6) Hypertension ICD Codes: I10 - Hypertension Status: Chronic (7) Dyslipidemia ICD Codes: E78.5 - Dyslipidemia Status: Chronic Assessment and Plan 1) NSTEMI s/p Clarke (2.25x15) to OM1 Con't ASA/Plavix Con't Lipitor/Lisinopril/BB 2) HTN Blood pressure better controlled 3) Cardiovascularly stable for discharge home Follow up with Dr. Lopez in 2-3 weeks Problem Qualifiers (1) Chest pain: Qualified Codes: R07.9 - Chest pain, unspecified Peter Hines DO Jul 17, 2017 10:31
[2017-07-17] MEDS ORDERED: LISI-515 PO (10:54)
[2017-07-17] MEDS ORDERED: METO25TA3 PO (10:54)
[2017-07-17] MEDS ORDERED: PLAV75TA29 PO (10:54)
[2017-07-17] MEDS ORDERED: ATOR1TAB18 PO (10:54)
[2017-07-17] MEDS ORDERED: ZETI10TA5 PO (10:54)
--- NOTE | 2017-07-17 10:54 | HHI.DCPOC ---
Discharge Care Plan Diagnosis: (1) NSTEMI (non-ST elevated myocardial infarction) (2) CAD (coronary artery disease) (3) Dyslipidemia (4) Diabetes Goals to Promote Your Health * To prevent worsening of your condition and complications * To maintain your health at the optimal level Directions to Meet Your Goals Take your medications as prescribed Follow your dietary instruction Follow activity as directed Keep your appointments as scheduled Take your immunizations and boosters as scheduled If your symptoms worsen call your PCP, if no PCP go to Urgent Care Center or Emergency Room Smoking is Dangerous to Your Health. Avoid second hand smoke Call the 24-hour hour crisis hotline for domestic abuse at Bruce Joshua MD Jul 17, 2017 10:54
--- NOTE | 2017-07-17 11:04 | HHI.DS ---
Discharge Summary Admission Date Jul 15, 2017 at 21:59 Discharge Date: Jul 17, 2017 Admitting Diagnosis CHEST PAIN (1) NSTEMI (non-ST elevated myocardial infarction) ICD Code: I21.4 - Non-ST elevation (NSTEMI) myocardial infarction Diagnosis: Principal Status: Acute (2) Chest pain ICD Code: R07.9 - Chest pain, unspecified Diagnosis: Principal Status: Acute (3) Elevated troponin ICD Code: R74.8 - Abnormal levels of other serum enzymes Diagnosis: Principal Status: Acute (4) CAD (coronary artery disease) ICD Code: I25.10 - Atherosclerotic heart disease of [place] coronary artery without angina pectoris Diagnosis: Principal Status: Acute (5) Dyslipidemia ICD Code: E78.5 - Dyslipidemia Status: Chronic (6) Hypertension ICD Code: I10 - Hypertension Status: Chronic Procedures Status post cardiac catheterization with placement of drug-eluting stent to OM1 Brief History - From Admission hx from patient, ER communication, review of records chest pain for 2 days was sweating radiates to back no syncope assoicated with shortness of breath no peripheral edema hx of htn does not measure BPs at home pain comes and goes if she moves around, gets short of breath nitro takes away pain rest takes away pain initially no pleuritic nature worse with palpation of chest pain is sharp in nature no other symptoms CBC/BMP: 07/17/17 0513 07/17/17 0513 Significant Findings Laboratory Tests Test 07/15/17 19:35 07/15/17 22:55 07/16/17 02:36 07/16/17 06:00 Random Glucose 150 MG/DL (74-106) 187 MG/DL (74-106) Potassium Level 3.3 MEQ/L (3.5-5.1) Troponin I 0.06 NG/ML (0.02-0.05) 0.42 NG/ML (0.02-0.05) Activated Partial Thromboplast Time 30.9 SEC (24.3-30.1) Anion Gap 4 MEQ/L (5-15) Test 07/16/17 21:05 07/17/17 05:13 Random Glucose 230 MG/DL (74-106) 151 MG/DL (74-106) Potassium Level 3.2 MEQ/L (3.5-5.1) Hemoglobin 11.3 GM/DL (11.6-15.3) Hematocrit 34.2 % (35.0-46.0) Chloride Level 108 MEQ/L (98-107) Imaging Last Impressions Aorta CTA 07/16/17 0000 Signed Impressions: Service Date/Time: June 03:39 - CONCLUSION: 1. No evidence of dissection Gabriel Arizmendi MD Chest X-Ray 07/15/17 1826 Signed Impressions: Service Date/Time: Saturday, July 15, 2017 18:58 - CONCLUSION: No acute disease. Daniel Rausch MD PE at Discharge AAO 3 Clear lungs BL S1S2 RRR, no MRG no edema in lower extremities no JVD Pt update on day of discharge Denies cp/sob. BP stable. Hospital Course The patient was admitted to the medical floor, treated with aspirin, heparin IV , beta bimal, MARIE inhibitor, statin. The patient underwent cardiac catheterization on 07/16/17 with placement of a drug-eluting stent - s/p Clarke ( 2.25x15) to OM1. The patient was observed to monitor on telemetry in the CIC unit overnight. No arrhythmias observed. The patient's blood pressure was elevated and uncontrolled, however improved by the day of discharge. The patient posteriorly cleared to be discharged by cardiology to follow-up with Dr. Lopez as an outpatient in 2 weeks. The patient was placed on SSI with insulin NovoLog 4 control blood sugars, blood sugars remained stable during hospital stay. Pt Condition on Discharge: Stable Discharge Disposition: Discharge Home Discharge Time: <= 30 minutes Discharge Instructions DIET: Follow Instructions for: Heart Healthy Diet, Diabetic Diet Activities you can perform: Regular-No Restrictions Activities to Avoid: Strenuous Activity Follow up Referrals: Cardiology - 2 Weeks with Wes Lopez MD Continued Medications: Aspirin (Aspirin) 81 Mg Chew 81 MG CHEW DAILY, TAB 0 Refills Atorvastatin (Atorvastatin) 80 Mg Tab 80 MG PO HS for Cholesterol Management, #30 TAB 0 Refills (This prescription has been renewed) Clopidogrel (Plavix) 75 Mg Tab 75 MG PO DAILY for Blood Clot Prevention, #30 TAB 0 Refills (This prescription has been renewed) Ezetimibe (Zetia) 10 Mg Tab 10 MG PO DAILY for Cholesterol Management, #30 TAB 0 Refills (This prescription has been renewed) Gabapentin (Gabapentin) 300 Mg Cap 300 MG PO BID, #60 CAP 0 Refills Insulin Aspart Inj (Novolog Flexpen Inj) 300 Unit/3 Ml Pen 7 UNITS SQ TIDAC for Blood Sugar Management, #1 PEN 0 Refills Insulin Detemir Inj (Levemir Inj) 1,000 unit/ 10 ML Vial 25 UNITS SQ HS for Blood Sugar Management, VIAL 0 Refills Do not mix with any other Insulin. Lisinopril (Lisinopril) 20 Mg Tab 20 MG PO DAILY for cad, #30 TAB 0 Refills (This prescription has been renewed) Metoprolol Tartrate (Metoprolol Tartrate) 25 Mg Tab 25 MG PO BID for cad, #60 TAB 0 Refills (This prescription has been renewed) Bruce Joshua MD Jul 17, 2017 11:04
--- NOTE | 2017-07-17 11:07 | MA ---
cc: PETER LUNDBERG DO DATE: 07/16/2017 PROCEDURE 1. Left heart catheterization. 2. Coronary angiogram. 3. Moderate sedation, 75 minutes. 4. Brooks drug-eluting stent (2.25 x 15) to OM1. PREPROCEDURE DIAGNOSIS NSTEMI, CAD, chest pain. POSTPROCEDURE DIAGNOSIS NSTEMI status post Brooks drug-eluting stent (2.25 x 15) to OM1. MEDICATIONS Versed 1 mg, fentanyl 100 mcg, heparin 9400 units, nitro 600 mcg, verapamil 2.5 mg, Plavix 225 mg. CONTRAST USED 170 cc. FLUOROSCOPY TIME 25.8 minutes. SEDATION Moderate sedation for 75 minutes. ESTIMATED BLOOD LOSS 20 cc. PROCEDURAL SUMMARY Shweta Fernandez is a pleasant 66-year-old female who presented to the [facility] Emergency Room on July 15, 2017 due to chest pain. She was found to have an elevated troponin and because of her symptoms as well as the elevated troponin she was recommended cardiac catheterization. The risks, benefits and alternatives were explained to her and she consented as such. She was brought to the lab and prepped in the usual sterile fashion. The right radial artery was accessed using a modified Seldinger technique and placement of a 5/6 Burmese Slender sheath. This was easily aspirated and flushed. A JR4 was advanced over a J-wire to the ascending aorta and across the aortic valve for measurement of left ventricular pressure. This was pulled back across the aortic valve showing no significant gradient of aortic stenosis. The JR4 was used for selective angiography of the right coronary artery. This was exchanged out for a JL 3.5 which was used for selective angiography of the left coronary artery. Please see notes below for interventional. Post procedure a radial band was placed over the arteriotomy site for hemostasis. The right femoral sheath was sewn in place with a plan for pulling once her ACT value was appropriate. The patient left the laborer heading cardiovascularly stable. FINDINGS Left main: Normal size vessel with 20% ostial disease. It bifurcates into an LAD and circumflex. LAD: Normal size vessel with mild luminal irregularities in the proximal portion. Distally the vessel has mild tortuosity with diffuse 30-40% lesions. It gives off two major diagonals with mild luminal irregularities. Left circumflex: Normal size vessel with mild luminal irregularities. The first obtuse marginal has a 99% lesion which then bifurcates into an upper and lower branch. Upper and lower branch overall are relatively small with diffuse 60% disease throughout. RCA: Normal size vessel with a 30% lesion in the midportion and a 50% lesion in the distal PDA. LVEDP 14. INTERVENTION Because of the significant 99% lesion in her first obtuse marginal as well as her chest pain and elevated troponin I felt that this needed to be intervened on. The patient was given heparin as an additional anticoagulant. The left main was engaged with an EBU 3.0. A Prowater wire was advanced into the distal obtuse marginal. A compliant balloon (2 x 12) was used to pre-dilate the lesion. While trying to advance the stent the guide position was lost and the wire was pulled back. At this time due to the significant tortuosity above as well as her calcified aorta I felt that a radial approach needed to be abandoned and decided to gain femoral access. The right femoral artery was accessed using a modified Seldinger technique and placement of a 6 Burmese sheath. This was easily aspirated and flushed. An EBU 3.0 guide catheter was then engaged in the left main. The Prowater wire was then advanced meticulously through the ballooned segment to make sure not to be in a dissection flap. An Clarke drug-eluting stent (2.25 x 15) was then inflated over the lesion. A noncompliant balloon (2.25 x 12) was then used to post dilate the stent. Final angiogram shows a well-opposed stent with no dissections or perforations. The wire was removed. The guide catheter was removed. IMPRESSION 1. NSTEMI status post Brooks drug-eluting stent (2.25 x 15) to first obtuse marginal. 2. Coronary artery disease. 3. Chest pain concerning for coronary insufficiency. RECOMMENDATIONS 1. Ms. Fernandez presented with chest pain and an NSTEMI and underwent stenting of her obtuse marginal with a drug-eluting stent. Because of this she will be recommended aspirin indefinitely and continuation of her Plavix. 2. She will continue on her Lipitor, lisinopril and metoprolol as before. 3. She was noted to be quite hypertensive while in the hospital and this has since been controlled while here in the hospital. 4. She will be watched for 24 hours with a plan to discharge if stable. 5. Will check a 2-D echo to look at her overall left ventricular function, cardiac structure and possible valvulopathies. If tomorrow she is stable on echocardiogram shows no problems then she can be discharged home to follow-up with Dr. Lopez in 2-4 weeks. Thank you for allowing me to see Shweta Jim. If there are any questions, please do not hesitate to call. Peter Lundberg DO VGP/BT /10:33 AM /10:49 AM
--- NOTE | 2017-07-17 22:03 | EKG ---
Date Performed: 07/16/2017 Time Performed: 08:26:40 PTAGE: 66 years EKG: Sinus bradycardia. Normal ECG except for rate PREVIOUS TRACING : 07/16/2017 01.11 Compared to prior tracing no significant change DOCTOR: Bruno Watts Interpretating Date/Time 07/17/2017 21:45:47
== END 2017-07-17 14:05 | disposition home or self-care (01) | DRG 247 ==
LOC: NEPC 18:13 → NEDA 21:14 → OBSVTOIN 21:59 → HCIN 23:39
PROVIDERS: ADMIT Internal Medicine; ATTEND Hospitalist
PROC: 4A023N7 Measurement of Cardiac Sampling and Pressure, Left Heart, Percutaneous Approach (ICD-10-PCS; 2017-07-16)
PROC: B2111ZZ Fluoroscopy of Multiple Coronary Arteries using Low Osmolar Contrast (ICD-10-PCS; 2017-07-16)
PROC: 027034Z Dilation of Coronary Artery, One Artery with Drug-eluting Intraluminal Device, Percutaneous Approach (ICD-10-PCS; principal; 2017-07-16 09:30)
DX: I21.4 Non-ST elevation (NSTEMI) myocardial infarction (principal); I10 Essential (primary) hypertension; E11.9 Type 2 diabetes mellitus without complications; I25.10 Atherosclerotic heart disease of native coronary artery without angina pectoris; E78.5 Hyperlipidemia, unspecified; Z95.5 Presence of coronary angioplasty implant and graft; Z87.891 Personal history of nicotine dependence; Z79.4 Long term (current) use of insulin; Z23 Encounter for immunization
CPT/HCPCS: 71020; 71275; 74174; 80048; 82550; 82552; 82948; 84484; 85002; 85025; 85610; 85730; 90686; 92928; 93005; 93306; 93458; 99285; C1725; C1769; C1874; C1887; C1893; J0360; J1644; J1815; J2250; J3010; Q2038; Q9967